=== PATIENT | female | born 1955 | race Caucasian/White ===

== ENCOUNTER 2025-01-02 10:37 | Inpatient (IN) | payer MEDICARE, SELFPAY ==
[2025-01-02] VITALS (43 sets, daily range): BP systolic 115–165; BP diastolic 66–95; PULSE 77–119; RESP 12–32; TEMP 36.7–37.4; O2SAT 90–98; BMI 31.2
--- NOTE | 2025-01-02 11:15 | CRLHL7_ITS ---
For Patients: As a result of the Century Cures Act, medical imaging exams and procedure reports are released immediately into your electronic medical record. You may view this report before your referring provider. If you have questions, please contact your health care provider. INDICATION: Leg pain and swelling. Low hemoglobin TECHNIQUE: Ultrasound venous duplex lower left extremity. Compression venous exam was performed using soriano-scale, color Doppler, and spectral Doppler analysis. COMPARISON: None. FINDINGS: Nonocclusive deep venous thrombosis is seen involving left common femoral vein as well as within the CFV/GSV junction. Great saphenous vein is entirely occluded with occlusive thrombus. Proximal and mid superficial femoral vein is compressible with no obvious intraluminal clot. Profunda femoral is compressible. Subocclusive thrombus is seen extending from distal superficial femoral vein into the calf veins. Contralateral right common femoral vein is patent and compressible. IMPRESSION: 1. Nonocclusive thrombus in the left common femoral, distal superficial femoral, popliteal and calf veins. 2. Occlusive superficial thrombosis involving great saphenous vein and GSV/common femoral vein junction. Findings were communicated to Dr. Wilfredo Liriano by Dr. Jv MD radiology at 12:42 p.m. on 01/02/2025. Dictated by Ana Maria Carias MD @ 01/02/2025 12:42:40 PM (Electronically Signed)
--- NOTE | 2025-01-02 11:18 | ED_ITS ---
HPI - General Adult General Chief complaint: Shortness of Breath/Dyspnea Stated complaint: Low Hgb Time Seen by Provider: 01/02/25 10:47 History of Present Illness HPI narrative: This 69-year-old female went to urgent care today because of left leg swelling and bruising and noticed on the way there that she became rather short of breath and had some lightheadedness. She states that she noticed these symptoms yesterday. She had labs checked there and was noted to have hemoglobin of 7.5. She was sent here for further evaluation and treatment. She arrives here with tachycardia at a heart rate around 120 beats per minute but other vital signs are reassuring. She denies having any awareness of loss of blood to explain this anemia. She states that she had a colonoscopy about a year ago with normal findings. She states that she takes a baby aspirin daily. She does not report any chest pain. She does have some occasions of pain shooting down her left leg but no constant pain. Her left leg does have some swelling and bruising. She denies any recent injury event. She states that she did have a bronchitis few weeks ago and was treated with an antibiotic. Those symptoms have resolved. Related Data Home Medications ?Medication ?Instructions ?Recorded ?Confirmed aspirin 81 mg tablet,delayed 81 mg PO DAILY 01/02/25 01/02/25 release atorvastatin 20 mg tablet 20 mg PO QPM 01/02/25 01/02/25 calcium 500 mg-vitamin D3 1,000 2 tab PO DAILY 01/02/25 01/02/25 unit-vitamin K 40 mcg chewable tablet (Citracal-D3 Soft Chew) lisinopril 20 mg tablet 10 mg PO DAILY 01/02/25 01/02/25 loratadine 10 mg tablet 10 mg PO DAILY PRN 01/02/25 01/02/25 Allergies Allergy/AdvReac Type Severity Reaction Status Date / Time Penicillins Allergy Verified 01/02/25 10:44 Review of Systems Status of ROS: Reports: 10 or more systems reviewed and unremarkable except as noted in History and below Narrative: Constitutional: No fevers, no weight gain or loss. Eyes: No discharge. No vision changes. HENT: No congestion, no sore throat, no ear pain. Cardiovascular: No chest pain, no palpitations. Respiratory: No wheezes, no cough. She reports some shortness of breath with exertion. Gastrointestinal: No abdominal pain, no vomiting, no diarrhea. Genitourinary: No dysuria, no hematuria. Musculoskeletal: Normal range of motion. Skin: No rashes, no pruritis. Neurological: No dizziness, weakness, sensory change, speech change. Endo/Heme/Allergies: No bleeding. No polydipsia. She reports some bruising and swelling in her left lower extremity. Pysch: no suicidality, no anxiety, no insomnia. All other systems reviewed and are negative. [facility] Medical History (Updated 01/02/25 @ 17:52 by Ngozi Mata MD) CKD stage 3b, GFR 30-44 ml/min ?N18.32 - Chronic kidney disease, stage 3b (ICD-10) Ulcerative proctitis ?K51.20 - Ulcerative (chronic) proctitis without complications (ICD-10) Colon polyp ?K63.5 - Polyp of colon (ICD-10) Osteopenia ?M85.80 - Other specified disorders of bone density and structure, unspecified site (ICD-10) Hyperlipidemia ?E78.5 - Hyperlipidemia, unspecified (ICD-10) Essential hypertension ?I10 - Essential (primary) hypertension (ICD-10) Surgical History (Updated 01/02/25 @ 17:44 by Ngozi Mata MD) Hx of colonoscopy ?Z98.890 - Other specified postprocedural states (ICD-10) Social History (Updated 01/02/25 @ 17:45 by Ngozi Mata MD) Narrative: Lives with her 98yo mother in [place]. Brother Ramiro/STARR Bolanos would be MDM if needed. Nonsmoker, rare social ETOH. Full Code. What is your current living situation?: I presently have a place to live Problems where you live: no known problems Problems where you live details: N/A In the past 12 months, utilities in danger of being shut off: no In past 12 months, lack of transportation kept you from medical appts, meetings, work, or getting things needed for daily living: no In the past 12 mos, have been you worried that your food would run out before you had money to buy more?: never true In the past 12 mos, the food you bought just didn't last and you didn't have money to buy more?: never true Highest level of school completed/degree received: high school graduate Smoking Status: Never smoker Do you use any of these nicotine containing products: None Second hand tobacco smoke exposure: No How often do you have a drink containing alcohol: never How often do you have six or more drinks on one occasion: Never AUDIT-C Alcohol total score: 0 Non-prescribed substance use: denies use Caffeine: Yes How often does anyone, including family, friends and others, physically hurt you : never How often does anyone, including family, friends and others, insult or talk down to you: never How often does anyone, including family, friends and others, threaten you with harm: never How often does anyone, including family, friends and others, scream or curse at you: never service: No Exam Narrative: Exam Narrative: Constitutional: Well-developed, well-nourished, no acute distress. HEENT: Normocephalic, atraumatic. Neck: Normal range of motion. Nontender. Supple. Heart: Regular. No murmurs. Tachycardia. Intact distal pulses. Lungs: Clear to auscultation. No chest discomfort. No wheezes, rhonchi, or rales. Abdomen: Normal bowel sounds. Nontender. No rebound tenderness. Genitalia: Deferred. Back: No midline tenderness. Normal range of motion. Extremities: Normal range of motion. No injury. Left leg does have some swelling and signs of diffuse bruising. Skin: Intact. No rash. Warm. No erythema or pallor. Neurologic: No altered sensation. No weakness. Alert and oriented. Psychiatric: No suicidality. No anxiety or depression. No insomnia. Nursing notes and vitals signs are reviewed. Const: Vital Signs, click to edit/add: Vital Signs - 24 hr 01/02/25 10:45 01/02/25 11:00 01/02/25 11:45 Temperature 98.1 F Pulse Rate 103 H 110 H Pulse Rate [Pulse Oximeter] 119 H Respiratory Rate 24 19 Blood Pressure Blood Pressure [Le ft Upper Arm] 144/77 H Pulse Oximetry 98 96 97 Oxygen Delivery Me thod Room Air 01/02/25 12:11 01/02/25 12:12 01/02/25 12:15 Temperature Pulse Rate 107 H 105 H 109 H Pulse Rate [Pulse Oximeter] Respiratory Rate 13 18 17 Blood Pressure 134/68 Blood Pressure [Le ft Upper Arm] Pulse Oximetry 94 94 93 Oxygen Delivery Me thod 01/02/25 12:30 01/02/25 12:32 01/02/25 12:32 Temperature Pulse Rate 97 104 H 104 H Pulse Rate [Pulse Oximeter] Respiratory Rate 16 Blood Pressure 134/69 134/69 Blood Pressure [Le ft Upper Arm] Pulse Oximetry 95 94 94 Oxygen Delivery Me thod 01/02/25 12:45 01/02/25 13:00 01/02/25 13:02 Temperature Pulse Rate 100 99 105 H Pulse Rate [Pulse Oximeter] Respiratory Rate 12 17 18 Blood Pressure 126/66 Blood Pressure [Le ft Upper Arm] Pulse Oximetry 93 92 92 Oxygen Delivery Me thod 01/02/25 13:15 01/02/25 13:41 01/02/25 13:45 Temperature Pulse Rate 97 114 H 101 H Pulse Rate [Pulse Oximeter] Respiratory Rate 13 13 22 Blood Pressure Blood Pressure [Le ft Upper Arm] Pulse Oximetry 90 90 96 Oxygen Delivery Me thod 01/02/25 14:00 01/02/25 14:05 01/02/25 14:06 Temperature Pulse Rate 92 94 97 Pulse Rate [Pulse Oximeter] Respiratory Rate 14 18 15 Blood Pressure Blood Pressure [Le ft Upper Arm] Pulse Oximetry 96 96 95 Oxygen Delivery Me thod 01/02/25 14:15 01/02/25 14:30 01/02/25 14:34 Temperature Pulse Rate 96 90 91 Pulse Rate [Pulse Oximeter] Respiratory Rate 26 H 18 32 H Blood Pressure Blood Pressure [Le ft Upper Arm] Pulse Oximetry 96 95 Oxygen Delivery Me thod 01/02/25 14:45 01/02/25 15:00 01/02/25 15:05 Temperature Pulse Rate 92 90 88 Pulse Rate [Pulse Oximeter] Respiratory Rate 20 29 H 29 H Blood Pressure Blood Pressure [Le ft Upper Arm] Pulse Oximetry 96 96 91 Oxygen Delivery Me thod 01/02/25 15:15 01/02/25 15:30 01/02/25 16:10 Temperature 99.2 F Pulse Rate 87 90 90 Pulse Rate [Pulse Oximeter] Respiratory Rate 23 18 18 Blood Pressure 137/78 Blood Pressure [Le ft Upper Arm] Pulse Oximetry 96 96 96 Oxygen Delivery Me thod Room Air 01/02/25 16:29 Temperature 98.2 F Pulse Rate 90 Pulse Rate [Pulse Oximeter] Respiratory Rate 18 Blood Pressure 141/80 H Blood Pressure [Le ft Upper Arm] Pulse Oximetry 94 Oxygen Delivery Me thod Room Air Course Vital Signs Vital signs: Initial Vital Signs Temperature 98.1 F 01/02/25 10:45 Temperature Source Temporal Artery Scan 01/02/25 10:45 Pulse Rate 119 H 01/02/25 10:45 Pulse Rhythm Irregular 01/02/25 10:45 Respiratory Rate 24 01/02/25 10:45 Blood Pressure 144/77 H 01/02/25 10:45 Blood Pressure Mean 99 01/02/25 10:45 Blood Pressure Position Semi-Fowlers 01/02/25 10:45 Pulse Oximetry 98 01/02/25 10:45 Oxygen Delivery Method Room Air 01/02/25 10:45 Vital Signs Temperature 98.1 F 01/02/25 10:45 Pulse Rate 119 H 01/02/25 10:45 Respiratory Rate 24 01/02/25 10:45 Blood Pressure 144/77 H 01/02/25 10:45 Pulse Oximetry 98 01/02/25 10:45 Oxygen Delivery Method Room Air 01/02/25 10:45 Temperature 98.7 F 01/02/25 21:00 Pulse Rate 83 01/02/25 21:00 Respiratory Rate 16 01/02/25 21:00 Blood Pressure 133/76 01/02/25 21:00 Pulse Oximetry 95 01/02/25 21:00 Oxygen Delivery Method Room Air 01/02/25 21:00 Medications Administered Medications: Generic Name Dose Route Start Last Admin Trade Name Freq PRN Reason Stop Dose Admin Atorvastatin Calcium 20 mg 01/02/25 18:00 01/02/25 18:54 Atorvastatin Calcium 10 Mg Tablet PO 20 mg QPM AISLINN Administration Heparin Sodium/Dextrose 25,000 unit in 500 mls @ 0 mls/hr 01/02/25 21:00 01/02/25 21:00 Heparin IV 1,300 unit/hr .Q0M AISLINN 26 mls/hr Administration Protocol Per Protocol Discontinued Medications Generic Name Dose Route Start Last Admin Trade Name Freq PRN Reason Stop Dose Admin Acetaminophen 1,000 mg 01/02/25 14:24 01/02/25 14:38 Acetaminophen 500 Mg Tablet PO 01/02/25 14:25 Not Given ONCE ONE Apixaban 10 mg 01/02/25 12:24 01/02/25 13:42 Apixaban 5 Mg Tablet PO 01/02/25 12:25 10 mg ONCE ONE Administration Furosemide 20 mg 01/02/25 18:38 01/02/25 18:55 Furosemide 10 Mg/Ml Inj IVP 01/02/25 18:39 20 mg ONCE ONE Administration Pantoprazole Sodium 80 mg 01/02/25 16:28 01/02/25 17:46 Pantoprazole Sodium 40 Mg Inj IVP 01/02/25 16:29 80 mg ONCE ONE Administration Perflutren Lipid Microsphere 2 ml 01/02/25 15:44 01/02/25 15:45 Perflutren Lipid Microspheres 2 Ml Vial IVP 01/02/25 15:45 2 ml ONCE ONE Administration Medical Decision Making Lab Data Labs: Lab Results 01/02/25 01/02/25 Range/Units 12:10 16:37 WBC 11.90 H (4.50-11.00) K/uL RBC 4.04 (4.00-5.20) m/uL Hgb 7.6 L* (12.0-16.0) gm/dL Hct 26.7 L (33.0-51.0) % MCV 66 L (80-100) fL MCH 19 L (26-34) pg MCHC 29 L (32-36) gm/dL RDW Coeff of Marc 16.9 H (11.5-15.5) % Plt Count 376 (140-440) K/uL Neut % (Auto) 88.2 H (42.0-72.0) % Lymph % (Auto) 5.0 L (20-44) % [place] % (Auto) 6.1 (0.0-11.0) % Eos % (Auto) 0.1 (0.0-7.0) % Baso % (Auto) 0.3 (0.0-3.0) % Neut # (Auto) 10.50 H (1.7-7.0) K/uL Lymph # (Auto) 0.60 L (0.90-2.90) K/uL [place] # (Auto) 0.70 (0.00-0.90) K/UL Eos # (Auto) 0.00 (0.00-0.50) K/uL Baso # (Auto) 0.00 (0.00-0.30) K/uL Abs Immat Gran (auto) 0.00 (0.00-0.30) K/uL Imm/Tot Granulo (auto) 0.3 % ESR 18 (2-20) mm/hr INR 1.07 1.77 H (0.91-1.10) APTT 32 (23-33) Seconds Sodium 139 (135-149) mmol/L Potassium 3.9 (3.6-5.1) mmol/L Chloride 105 (96-114) mmol/L Carbon Dioxide 24 (20-32) mmol/L Anion Gap 10 (7-15) mEq/L BUN 20 (7-30) mg/dL Creatinine 1.3 (0.5-1.5) mg/dL Estimated Creat Clear 28.51 Estimated GFR 44 ml/min Glucose 147 H (60-115) mg/dL Lactate 2.3 H (0.5-1.9) mmol/L Calcium 8.8 (8.4-10.6) mg/dL Total Bilirubin 0.6 (0.1-1.5) mg/dL Direct Bilirubin 0.4 (0.0-0.5) mg/dL AST 30 (12-35) U/L ALT 23 (4-35) U/L Alkaline Phosphatase 141 (40-150) U/L C-Reactive Protein 4.9 H (0.5-1.0) mg/dL Total Protein 6.1 (6.0-8.3) g/dL Albumin 3.6 (3.3-5.0) g/dL Blood Type AB Positive Antibody Screen NEGATIVE Crossmatch (AHG) See Detail Imaging Data Venous US: Radiologist's impression: 1. Nonocclusive thrombus in the left common femoral, distal superficial femoral, popliteal and calf veins. 2. Occlusive superficial thrombosis involving great saphenous vein and GSV/common femoral vein junction. CT scan - chest: Radiologist's impression: 1. Bilateral lower lobe pulmonary emboli beginning at the segmental level. Overall, the embolus burden is fairly mild. 2. The main pulmonary artery is not dilated, but the right heart chambers are dilated and there is mild reflux of contrast into the upper abdominal IVC. Can not exclude acute right heart strain. Consider echocardiogram if not already performed. 3. Small left pleural effusion without loculation. ECG Data Attestation: I personally reviewed and interpreted this ECG as follows: Interpretation: Sinus tachycardia with occasional PACs. Rate is 109 beats per minute. There are no ST or T-wave abnormalities.
--- NOTE | 2025-01-02 12:13 | CRLHL7_ITS ---
For Patients: As a result of the Century Cures Act, medical imaging exams and procedure reports are released immediately into your electronic medical record. You may view this report before your referring provider. If you have questions, please contact your health care provider. INDICATION: DVT, anemia. COMPARISON: Ultrasound 01/02/2025 for DVT TECHNIQUE: CT angiogram chest with contrast, pulmonary embolism protocol. Multiplanar axial, coronal, and sagittal reformats are included. Intravenous contrast: 95 mL Isovue 370. FINDINGS: PE: Well-timed contrast bolus. There are bilateral pulmonary emboli. The most proximal emboli or at the segmental level in both lower lobes. None of the more proximal emboli are completely occlusive but some of the distal emboli are normal caliber main pulmonary artery. Mildly dilated right heart chambers. Small volume reflux of contrast below the diaphragm. Airway: Expiratory appearance of the trachea. Lungs: Expiratory appearance of the lungs. Within the aerated portion, no worrisome nodules or mass. There is some atelectasis in the left lower lobe that appears compressive. No consolidations. No definitive infarcts. No pulmonary edema. Pleura: There is a small left pleural effusion that is layering posteriorly and inferiorly without any loculation. No pneumothorax. Lymph nodes: No thoracic adenopathy. Mediastinum: No pneumomediastinum. Moderate sliding-type hiatal hernia without any inflammation. Heart and great vessels: No pericardial effusion. Normal cardiac chamber size. Scattered atherosclerotic plaques. No aortic aneurysm. Chest wall: Normal. No masses. Upper abdomen: Normal. Bones: No fractures. No focal bone lesions. IMPRESSION: 1. Bilateral lower lobe pulmonary emboli beginning at the segmental level. Overall, the embolus burden is fairly mild. 2. The main pulmonary artery is not dilated, but the right heart chambers are dilated and there is mild reflux of contrast into the upper abdominal IVC. Can not exclude acute right heart strain. Consider echocardiogram if not already performed. 3. Small left pleural effusion without loculation. Discussed with Dr. Villalobos at 2:02 p.m. on 01/02/2025. Please note that all CT scans at this facility use dose modulation, iterative reconstruction, and/or weight-based dosing when appropriate to reduce radiation dose to as low as reasonably achievable. Dictated by Angi Maynard MD @ 01/02/2025 2:03:48 PM (Electronically Signed)
[2025-01-02 12:15] LABS: Lactate* 2.3 mmol/L (0.5-1.9)
[2025-01-02 12:18] LABS: Basophils Percent Auto 0.3 % (0.0-3.0); Eosinophils Percent Auto 0.1 % (0.0-7.0); Hematocrit 26.7 % (33.0-51.0); Immature Granulocytes Pct Auto 0.3 %; Mean Corpuscular HGB Conc 29 gm/dL (32-36); Mean Corpuscular Hemoglobin 19 pg (26-34); Mean Corpuscular Volume 66 fL (80-100); Monocytes Percent Auto 6.1 % (0.0-11.0); Neutrophils Percent Auto 88.2 % (42.0-72.0); Platelet Count* 376 K/uL (140-440); RDW Coefficient of Variation % 16.9 % (11.5-15.5); Red Blood Count 4.04 m/uL (4.00-5.20)
[2025-01-02 12:24] LABS: Hemoglobin* 7.6 gm/dL (12.0-16.0); Slide Review Reflex No
[2025-01-02 12:30] LABS: Chloride* 105 mmol/L (96-114)
[2025-01-02 12:31] LABS: Albumin* 3.6 g/dL (3.3-5.0); Potassium* 3.9 mmol/L (3.6-5.1); Sodium* 139 mmol/L (135-149)
[2025-01-02 12:32] LABS: INR 1.07 (0.91-1.10); Prothrombin Time 14.7 Seconds
[2025-01-02 12:33] LABS: Blood Urea Nitrogen* 20 mg/dL (7-30); Creatinine* 1.3 mg/dL (0.5-1.5); Est. Creatinine Clearance* 28.51; Estimated Glomerular Filt Rate 44 ml/min
[2025-01-02 12:34] LABS: Alanine Aminotransferase* 23 U/L (4-35); Alkaline Phosphatase* 141 U/L (40-150); Anion Gap 10 mEq/L (7-15); Aspartate Amino Transferase* 30 U/L (12-35); Bilirubin Direct* 0.4 mg/dL (0.0-0.5); Bilirubin Total* 0.6 mg/dL (0.1-1.5); Calcium* 8.8 mg/dL (8.4-10.6); Carbon Dioxide* 24 mmol/L (20-32); Glucose* 147 mg/dL (60-115); Total Protein* 6.1 g/dL (6.0-8.3)
[2025-01-02 12:37] LABS: C Reactive Protein* 4.9 mg/dL (0.5-1.0)
--- OUTSIDE RECORDS SUMMARY | 2025-01-02 12:52 | XMS_ITS | Clinical Summary ---
Author Organization [facility] Address [address] [place] [id number] Care Team Providers Care Calibration Laboratory Technician Name Role Phone Emily Mccullough Primary Care Provider [phone] Allergies Active Allergy Reactions Criticality Noted Date Comments Penicillins 12/08/2010 Medications aspirin (ECOTRIN) 81 mg enteric coated tablet Take 1 tablet by mouth once daily with a meal. 0 5 Active loratadine (CLARITIN) 10 mg tabletIndications :Seasonal allergic rhinitis due to pollen TAKE ONE TABLET BY MOUTH ONE TIME DAILY 30 tablet 8 Active atorvastatin (LIPITOR) 20 mg tabletIndications :Dyslipidemia Take 1 Tablet (20 mg) by mouth at bedtime. 100 Tablet 3 4 Active lisinopriL (PRINIVIL; ZESTRIL) 10 mg tabletIndications :Essential hypertension Take 1 Tablet (10 mg) by mouth once daily. 100 Tablet 3 4 Active medication order composer Calcium and Vit D once daily Active benzonatate (TESSALON) 200 mg capsuleIndication s:Acute cough Take 1 Capsule (200 mg) by mouth 3 times daily if needed for Cough. 30 Capsule 5 Active albuterol HFA (PRO-AIR; VENTOLIN; PROVENTIL) 90 mcg/actuation inhalerIndication s:Acute cough Inhale 1-2 Puffs by mouth every 4 hours while awake. Use as directed for 5 days, then as needed for cough and wheezing. 1 Each 5 Active azithromycin (ZITHROMAX) 250 mg tabletIndications :Acute cough Take 500 mg (2 tabs) by mouth on day 1, then 250 mg (1 tab) daily for days 2-5. 6 Tablet 5 Active predniSONE (DELTASONE) 20 mg tabletIndications :Acute cough Take 2 Tablets (40 mg) by mouth once daily with a meal for 5 days. 10 Tablet 5 12/08/19 25 Active Problems Problem Noted Date Diagnosed Date Fatty liver disease, nonalcoholic 02/07/2024 Overview (02/07/2024): Mildly elevated liver chemistry tests. Prediabetes 01/15/2024 Severe obesity (BMI 35.0-39.9) with comorbidity 01/15/2024 Stage 3b chronic kidney disease (CKD) 12/12/2021 Adenomatous colon polyp 07/15/2021 Overview (07/15/2021): Colonoscopy 06/2021 TA, repeat in 7 years Osteopenia of multiple sites 07/01/2020 Overview (02/01/2024): DEXA 06/23/20: T-scores AP: -1.8, LFN -1.8, RFN -1.6. FRAX 16.3. Recommend basic bone health and repeat in 3-5 years. DEXA 01/24/24: T-scores AP: -1.9, LFN -2.4, RFN -2.1. FRAX 20%, 4.9%. Recommend advanced therapy and repeat in 2 years. Skin cancer 12/29/2017 Overview (05/25/2023): 03/24/2023 - Left lateral shoulder, basal cell carcinoma, nodular and infiltrative: excised 05/05/2023 by Juan Simon MD 03/24/2023 - Right superior shoulder, BCC: ED&C 04/14/2023 by MICKEY Nava. 05/2020 - LEFT LUTHERAN, Basal cell carcinoma, nodular type: MOHS 07/21/2020 Imtiaz 05/2020 - LEFT FOREARM, Basal cell carcinoma, superficial and nodular types: ED&C 07/14/20 Alfred 05/2020 - LEFT BACK, Basal cell carcinoma, nodular and infiltrative types: excision 07/14/20 Alfred 05/2020 - LEFT UPPER ARM, Basal cell carcinoma, nodular type: ED&C 06/24/20 Alfred 12/28/17 Left Upper Arm, n&I BCC, excised 02/01/18 Alfred 12/28/17 Left Lower Arm n&I BCC, excised 02/01/18 Alfred Non morbid obesity 12/05/2016 Ulcerative (chronic) proctitis 07/10/2014 Overview (07/24/2014): Colonoscopy 06/2014 proctitis repeat in 7 years Dyslipidemia 05/30/2014 Essential hypertension 05/08/2013 Resolved Problems Problem Noted Date Diagnosed Date Resolved Date Positive fecal occult blood test 06/02/2014 12/05/2016 Overview (06/02/2014): Screening ifobt 05/2014 positive. Recommend colonoscopy. Overweight 06/01/2014 12/05/2016 Prediabetes 05/09/2013 12/07/2017 Overview (05/09/2013): 04/2013 A1C 5.7 Dyslipidemia, goal LDL below 130 05/09/2013 05/30/2014 Overview (05/09/2013): Lifestyle modifications Encounters Date Type Department Care Team Description 01/02/2025 8:25 AM CDT [facility] [address] [place] [address] Shelia Titus NP Leg Pain/problem 01/02/2025 Travel 12/03/2024 8:50 AM COAL WASHER TENDER Office Visit [facility] [address] [place] [address] Tara Altamirano NP Cough; Sinus Problem (x 3-4 weeks) 12/03/2024 Travel 10/04/2024 11:46 AM COAL WASHER TENDER - 10/04/2024 11:59 PM COAL WASHER TENDER Hospital Encounter [facility] [address] [place] [address] Osteopenia of multiple sites (Primary Dx) 10/04/2024 Travel from Last 3 Months Immunizations Immunization Administration Dates Next Due COVID-19 vaccine (MyWants NTech 30mcg/0.3mL) PF, MDV 09/15/2021,01/28/2021,01/07/2021 Influenza RIV4 (Age 18+ Year s) PRESERV FREE 07/25/2019 Influenza Virus, Unspecified 06/16/2018,07/15/20 17 Influenza, High-dose Quadriv alent Inactivated 07/22/2023,08/08/2022,06/30/2021,2019 Influenza, IIV4 07/30/2016 Pneumococcal Poly,23-Valent (Pneumovax) 12/06/2019 Pneumococcal conj 13-Valent (Prevnar 13) 12/03/2018 Td (Age >=7 Years) 04/22/2005,04/04/2005 Tdap 01/29/2024,05/08/2013 Zoster (Zostavax-ZVL, live) 12/05/2015 Family History Medical History Relation Name Comments Heart Disease Father [place] Cancer-breast Mother Hyperlipidemia Mother Postmenopausal breast cancer Mother Genetic Other Family history of:~~Breast Cancer: No~~Ovarian Cancer: No~~Colon CA: No~~Prostate/Testicular CA: No~~Osteoporosis: No~~Early CAD: Father [place] at 59. ~~DM: Aunt ~~Thyroid Dz: No Cancer-ovarian No Family History Relation Name Status Comments Father Mother Alive Other Social History Tobacco Use Types Packs/Day Years Used Date Smoking Tobacco: Never Smokeless Tobacco: Never Tobacco Cessation:Counseling Given: No Alcohol Use Standard Drinks/Week Comments No 0 (1 standard drink = 0.6 oz pure alcohol) Alcoholic Drinks/day: infrequent <2 per month PHQ-2 Answer Date Recorded PHQ-2 TOTAL SCORE 0 01/15/2024 Social Connections Answer Date Recorded Do you often feel lonely or isolated from those around you? 0 04/04/2024 Financial Resource Strain Answer Date R ecorded Difficulty of Paying Living Expenses 3 04/04/2024 Difficulty of Paying Living Expenses Not on file 04/04/2024 Food Insecurity Answer Date Recorded Do you worry your food will run out before you are able to buy more? 1 04/04/2024 Transportation Needs Answer Date Record ed Does lack of transportation keep you from medica l appointments? 1 04/04/2024 Does lack of transportation keep you from work, meetings or getting things that you need? 1 04/04/2024 Housing Stability Answer Date Recorded What is your housing situation today? 1 04/04/2024 Utilities Answer Date Recorded Do you have trouble paying f or utilities (for example, heat, electricity, water, phone)? 1 04/04/2024 Comments No Sex and Gender Information Value Date Recorded Sex Assigned at Not on file Legal Sex Female 5:26 AM COAL WASHER TENDER Gender Identity Not on file Sexual Orientation Not on file Obstetrics History Last Filed Vital Signs Vital Sign Reading Time Taken Comments Blood Pressure 145/84 01/02/2025 8:25 AM CDT Pulse 107 01/02/2025 8:25 AM CDT Temperature 36.8 C (98.3 F) 01/02/2025 8:25 AM CDT Respiratory Rate 18 01/02/2025 8:25 AM CDT Oxygen Saturation 96% 01/02/2025 8:25 AM CDT Inhaled Oxygen Concentration - - Weight 74.8 kg (165 lb) 08/09/2024 1:15 PM CDT Height 152.4 cm (5') 08/09/2024 1:15 PM CDT Body Mass Index 32.22 08/09/2024 1:15 PM CDT Plan of Treatment Upcoming Encounters Date Type Department Care Team (Late st Contact Info) Description 01/17/2025 10:20 AM CDT Office Visit [facility] [address] [place] [address] [place] [address] [place] [address] Health Maintenance Due Date Last Done Comments RSV vaccine for adults or (1 - Risk 60-74 years 1-dose series) 2013 Zoster (shingles) series for age 50+ (2 of 3) 01/30/2016 12/05/2015 Influenza Vaccine (#1) 2024 9, 06/16/2018, 07/15/2017, Additional history exists Mammogram for age 45-75 07/07/2024 07/07/20 23, 12/14/2021, 07/02/2020, Additional history exists Depression screening for age 12+ 01/14/2025 01/15/2024, 01/30/2023, 01/27/2023, Additional history exists Medicare Wellness for age 65+ 01/15/2025, 01/27/2023, 12/10/2021, Additional history exists COVID-19 vaccine series ( season) 2025 07/25/2024, 08/13/2023, 08/20/2022, Additional history exists BMI (ht and wt on same day) for age 18+ 08/09/2025 08/09/2024, 04/04/2024, 01/15/2024, Additional history exists Colonoscopy through age 75 07/13/202807/13, 07/13/2021, 07/13/2021, Additional history exists Lipids for age 45-75 01/14/2029 01/15/2024, 01/27/2023, 12/10/2021, Additional history exists Tetanus booster 01/28/2034 01/29/2024, 04/16, 04/22/2005, Additional history exists Hepatitis C screening for ag e 18-79 Completed 12/03/2018 Pneumococcal series for age 50+ Completed , 12/03/2018 DEXA/DXA scan for age 65+ Completed 01/24/2024, 05/2020 Tdap Completed 01/29/2024, 05/08/2013 Procedures Procedure Name Priority Date/Time Associated Diagnosis Comments CBC WITH AUTO DIFFERENTIAL STAT 01/02/2025 9:01 AM CDT Leg hematoma, left, initial encounter CREATININE Today 10/04/2024 12:04 PM COAL WASHER TENDER Osteopenia of multiple sites CALCIUM Today 10/04/2024 12:04 PM COAL WASHER TENDER Osteopenia of multiple sites VITAMIN D 25 (DEFICIENCY) Today 10/04/2024 12:04 PM COAL WASHER TENDER Osteopenia of multiple sites XR DXA BONE DENSITY 2 SITES AXIAL AND 1 SITE PERIPHERAL Routine 01/24/2024 10:40 AM CDT Osteopenia of multiple sites LIPID PANEL W REFLEX MEASURED LDL Routine 01/15/2024 11:30 AM CDT Dyslipidemia XR MAMMO LEE BILAT SCREEN Routine 07/07/2023 1:17 PM CDT Visit for screening mammogram COLONOSCOPY SCREENING Routine 07/13/2021 8:59 AM CDT Polyp of colon, unspecified part of colon, unspecified type Screening for colon cancer ANTI HCV Routine 12/03/2018 11:37 AM COAL WASHER TENDER Need for hepatitis C screening test from Last 3 Months or Most Recently Relevant to Health Maintenance Results * VITAMIN D 25 (DEFICIENCY) (10/04/2024 12:04 PM COAL WASHER TENDER) VITAMIN D TOTAL 30.9 20.0 - 80.0 ng/mL 10/04/2024 2:39 PM COAL WASHER TENDER [facility] Blood BLOOD SPECIMEN / Unknown Venipuncture / Unknown 10/04/2024 12:04 PM COAL WASHER TENDER 10/04/2024 12:07 PM COAL WASHER TENDER Narrative [facility] - 10/04/2024 2:39 PM COAL WASHER TENDER Vitamin D Status Deficiency: <20 ng/mL Insufficiency: 20-29 ng/mL Sufficiency: 30-80 ng/mL Possible Toxicity: >80 ng/mL Based on [place] [employer] recommendations Biotin supplements may cause clinically significant interference for this test assay. If interference is suspected, it is strongly recommended that biotin is discontinued for at least one week prior to retesting. us Nilay Brantley MD SEND OUTS Final Resu lt [facility] [address] [place] [address], [place] * (ABNORMAL) CREATININE (10/04/2024 12:04 PM COAL WASHER TENDER) eGFR 32(L) >90 mL/min/1.7 3m2 10/04/2024 12:29 PM COAL WASHER TENDER [facility] Comment:As of 2021, eG FR is calculated by the CKD-EPI creatinine equation without race adjustment. eGFR can be influenced by muscle mass, exercise, and diet. The reported eGFR is an estimation only and is only applicable if the renal function is stable. CREATININE 1.69(H) 0.50 - 0.90 mg/dL 10/04/2024 12:29 PM COAL WASHER TENDER [facility] Blood BLOOD SPECIMEN / Unknown Venipuncture / Unknown 10/04/2024 12:04 PM COAL WASHER TENDER 10/04/2024 12:07 PM COAL WASHER TENDER us Nilay Brantley MD CHEMISTRY Final Resu lt Performing Organization Address [facility]/ZIP Co de Phone Number [facility] SENDOUT INTERNAL [facility] [id number] [place] [phone] * CALCIUM (10/04/2024 12:04 PM COAL WASHER TENDER) [facility] CALCIUM 9.3 8.8 - 10.4 mg/dL 10/04/2024 12:29 PM COAL WASHER TENDER [facility] Comment: Reference ranges for this test were updated on 08/20/2024 to reflect our healthy population more accurately. Reference range changes are not retroactively applied to results, but previous results using the same methodology can be interpreted in the context of the new reference range. Blood BLOOD SPECIMEN / Unknown Venipuncture / Unknown 10/04/2024 12:04 PM COAL WASHER TENDER 10/04/2024 12:07 PM COAL WASHER TENDER us Nilay Brantley MD CHEMISTRY Final Resu lt Performing Organization Address City/[facility]/ZIP Co de Phone Number [facility] SENDOUT INTERNAL ZIP [phone] [place] [address] * (ABNORMAL) XR DXA BONE DENSITY 2 SITES AXIAL AND 1 SITE PERIPHERAL (01/24/2024 10:40 AM CDT) Anatomical Region Laterality Modality LUMBAR SPINE Other Impressions 01/30/2024 1:37 PM CDT Osteopenia. RECOMMENDATIONS: The National Osteoporosis Foundation recommends pharmacologic treatment for patients with T-scores of -2.5 or less, patients with prior history of fragility fractures, or patients with 10-year probability of greater than 3% at hips or greater than 20% of suffering major osteoporotic fractures. Recommend continued optimization of calcium and vitamin D intake through dietary means and/or supplementation and regular exercise. Consider pharmacologic therapy for osteopenia with increased fracture risk. Follow-up bone density reading in 2 years if therapy initiated to assess therapeutic efficacy. Sara Fenton PA-C [facility] 01/30/2024 Narrative 01/30/2024 1:37 PM CDT For Patients: Results are automatically released to your [facility] account once available, in compliance with federal regulations. This means that you may see your results before your provider has had a chance to review them. Please allow 2-3 business days for your provider to comment on the results. XR DXA Bone Mineral Density (BMD) EXAM LOCATION: [address] [address] PATIENT NAME: Jermain Jones DATE OF : 1955 EXAM DATE: 01/24/2024 REQUESTING PROVIDER: Emily Mccullough DO GENDER AT : female HEIGHT: 4' 9 (01/15/2024) WEIGHT: 165 lb 11.2 oz (01/15/2024) MENOPAUSAL STATUS: Postmenopausal RACE/ETHNICITY: White RISK FACTORS: Height Loss (2 inches or more), History of Fragility Fracture (at a major site), Renal Failure, and White Race CURRENT MEDICATION FOR BONE LOSS: NONE INDICATION: Follow-up of existing osteopenia COMPARISON DATE(S): 2019 DXA scans are compared to prior studies for a patient only when the two (or more) studies were performed on the same scanner. It is not possible to compare data generated on one scanner to data from another because there are not standards in DXA equipment. This applies even if the two scanners are made by the same product technology scientist. PROCEDURE: Dual-energy x-ray absorptiometry performed with routine technique. Reporting is completed in the form of a T-score. The T-score represents the standard deviation from peak bone mass based on young healthy adult. A Z-score is used for diagnosis in premenopausal women, and for men under the age of 50. FINDINGS: RESULT LUMBAR SPINE L1 - L3 BMD: 0.946 g/cm2 T-Score: - 1.9 Z-Score: - 0.6 Change from prior in 2020: Decrease 2.7%. RESULTS FEMUR Left femoral neck BMD: 0.702 g/cm2 T-Score: - 2.4 Z-Score: - 0.9 Change from prior in 2020: Decrease 10.6%. Right femoral neck BMD: 0.752 g/cm2 T-Score: - 2.1 Z-Score: - 0.6 Change from prior in 2020: Decrease 7.4%. Left hip BMD: 0.739 g/cm2 T-Score: - 2.1 Z-Score: - 0.9 Change from prior in 2020: Decrease 3.1%. Right hip BMD: 0.827 g/cm2 T-Score: - 1.4 Z-Score: - 0.2 Change from prior in 2020: Decrease 4.9%. RESULT FOREARM Left Forearm distal radius BMD: 0.571 g/cm2 T-Score: - 1.7 Z-Score: + 0.2 Change from prior: None(NO COMPARISON) WHO criteria: Normal: T-score at or above -1 SD Osteopenia: T-score between -1.1 and -2.4 SD Osteoporosis: T-score at or below -2.5 SD FRAX RISK CALCULATION (USED FOR OSTEOPENIA ONLY): 10-year probability of major osteoporotic fracture: 20.7%. 10-year probability of hip fracture: 4.9%. Emily Armijoe Sadia DO DEXA Final Resul t * LIPID PANEL W REFLEX MEASURED LDL (01/15/2024 11:30 AM CDT) [facility] CHOLESTEROL,TOTAL 160 100 - 199 mg/dL 01/15/2024 5:01 PM [facility] Comment: Cholesterol, Total Reference Ranges Desirable <200 mg/dL Borderline 200-239 mg/dL High >=240 mg/dL TRIGLYCERIDES 73 <150 mg/dL 01/15/2024 5:01 PM T [facility] HDL CHOLESTEROL 81 >40 mg/dL 5:01 PM [facility] NON-HDL CHOLESTEROL 79 <145 mg/dl 01/15/2024 5:01 PM [facility] CHOL/HDL RATIO 1.98 <4.50 01/15/2024 5:01 PM CDT [facility] LDL CHOLESTEROL 64 <=130 mg/dL 01/15/2024 5:01 PM CDT [facility] VLDL CHOLESTEROL 15 <=30 mg/dL 01/15/2024 5:01 PM CDT [facility] PROVIDER ORDERED STATUS FASTING 01/15/2024 5:01 PM CDT [facility] Blood BLOOD SPECIMEN / Unknown Venipuncture / Unknown 01/15/2024 11:30 AM CDT 01/15/2024 11:30 AM CDT us Emily Mccullough DO CHEMISTRY Final Resul t [facility] [address] [place] [address], [place] * XR MAMMO LEE BILAT SCREEN (07/07/2023 1:17 PM CDT) Anatomical Region Laterality Modality BREASTS, Breast Left, Breast Right Bilateral Mammography Impressions 07/07/2023 3:50 PM CDT There is no radiographic evidence for malignancy. Recommend annual mammograms. MAMMOGRAM ASSESSMENT: ACR 1 Negative PATIENTS: You will also receive a letter with your examination results in an easy to read format. If you have questions about your results, please contact your referring provider. Narrative 07/07/2023 3:50 PM CDT For Patients: As a result of the Century Cures Act, medical imaging exams and procedure reports are released immediately into your electronic medical record. You may view this report before your referring provider. If you have questions, please contact your health care provider. XR MAMMO LEE BILAT SCREEN [[id number]] CLINICAL HISTORY: This is an asymptomatic 68 y.o. patient. INDICATION FOR EXAM: Mammogram Screening. TECHNIQUE: CC & MLO views were obtained. This study was evaluated with the assistance of Computer-Aided Detection. Breast Tomosynthesis was used in interpretation. COMPARISON FILM: Yes 12/14/21 [employer] 9/17/20 [facility] FINDINGS: The breasts are heterogeneously dense, which may obscure small masses. There are no dominant masses, suspicious micro calcifications or areas of architectural distortion. us Emily Mccullough DO MAMMO Final Resul t * COLONOSCOPY (07/13/2021 9:19 AM CDT) 07/13/2021 9:19 AM CDT Narrative Transcriptions Vamshi Quesada MD - 07/13/2021 10:14 AM CDT Patient Name: Jermain Jones Procedure Date: 07/13/2021 Gender: Female Date of : 1955 Admit Type: Outpatient Procedure: Colonoscopy Proceduralist: Vmashi Quesada MD , Jasmin Ku (Nurse) Referring MD: Emily Mccullough Indications/Pre-Op Diagnosis: Screening for colorectal malignant neoplasm, Last colonoscopy: June 2014 Medications: Fentanyl 100 micrograms IV, Midazolam 2 mgIV, The level of sedation administered wasmoderate Procedure Description: The patient had risks, benefits and alternatives explained to andgave informed consent. The patient had a stable cardiopulmonary status and judged an adequate candidate for conscious sedation. The [id number] was passed through the anus and advanced tothe terminal ileum. The colonoscopy was performed without difficulty. The patient tolerated the procedure well. The quality of the bowel preparation was good. The ileocecal valve, appendiceal orifice, and rectum were photographed. Complications: No immediate complications. Estimated Blood Loss & Specimen: Estimated blood loss: none. Specimen collected - Yes and sent to Laboratory Findings: The perianal and digital rectal examinations were normal. The terminal ileum appeared normal. A 3 mm polyp was found in the sigmoid colon. The polyp was sessile.The polyp was removed with a cold biopsy forceps. Resection and retrieval were complete. A few small-mouthed diverticula were found in the sigmoid colon and descending colon. Impressions/Post-Op Diagnosis: - The examined portion of the ileum was normal. - One 3 mm polyp in the sigmoid colon, removed with a cold biopsy forceps. Resected and retrieved. - Diverticulosis in the sigmoid colon and in the descending colon. Recommendation: - Patient has a contact number available for emergencies. The signsand symptoms of potential delayed complications were discussed with the patient. Return to normal activities tomorrow. Written discharge instructions were provided to the patient. - Resume previous diet. - Continue present medications. - Await pathology results. - Repeat colonoscopy is recommended. The colonoscopy date will be determined after pathology results from today's exam become available for review. Moderate Sedation: Moderate (conscious) sedation was administered by the endoscopy nurse and supervised by the endoscopist. The following parameters were monitored: oxygen saturation, heart rate, respiratory rate, blood pressure, adequacy of pulmonary ventilation and reponse to care. Please refer to the patient's medical record flowsheets and nursing notes for moderate sedation details. Total physician intraservice time was 16 minutes. Vamshi Quesada MD 07/13/2021 10:14:04 AM This report has been signed electronically. Note Initiated On: 07/13/2021 9:19 AM Procedure Code(s): --- Professional --- 20112, Colonoscopy, flexible; with biopsy, single or multiple Diagnosis Code(s): --- Professional --- Z12.11, Encounter for screening formalignant neoplasm of colon K63.5, Polyp of colon K57.30, Diverticulosis of large intestine without perforation or abscess withoutbleeding CPT copyright 2020 [employer]. All rights reserved. The codes documented in this report are preliminary and upon insurance coder reviewmay be revised to meet current compliance requirements. Scope In: 9:57:15 AM Scope Withdrawal Time 0 hours 8 minutes 18 seconds Scope Out: 10:10:12 AM us Vamshi Quesada MD PROCEDURE ORD Final Res ult * ANTI HCV (12/03/2018 11:37 AM COAL WASHER TENDER) HEPATITIS C ANTIBODY Non-React dede Non-React dede 12/03/2018 7:19 PM COAL WASHER TENDER [facility] Comment:Antibodies to HCV no t detected; does not exclude the possibility of exposure to HCV. Blood BLOOD SPECIMEN / Unknown Venipuncture / Unknown 12/03/2018 11:37 AM COAL WASHER TENDER 12/03/2018 11:37 AM COAL WASHER TENDER us Emily Mccullough DO SEND OUTS Final Resul t [facility] [address] [place] [address], [place] from Last 3 Months or Most Recently Relevant to Health Maintenance Insurance [facility] [employer] MEDICARE PART A HB ONLY * Guarantor: JERMAIN JONES Account Type Relation to Patient Date of Phone Billing Address [employer] [address] [place] [address] [facility] Care Teams Calibration Laboratory Technician Relationship Specialty [place] [address] [place] [address] PCP - General Family Practice 12/03/18
[2025-01-02 13:17] LABS: Erythrocyte SedimentationRate* 18 mm/hr (2-20)
[2025-01-02] MEDS: APIXABAN 5 MG TABLET 10 MG PO (13:42)
[2025-01-02] MEDS: PERFLUTREN LIPID MICROSPHERES 2 ML VIAL IVP (15:45)
[2025-01-02 16:56] LABS: INR 1.77 (0.91-1.10); Prothrombin Time 21.7 Seconds
[2025-01-02 16:57] LABS: Partial Thromboplastin Time* 32 Seconds (23-33)
--- NOTE | 2025-01-02 17:29 | PM.IMHP1 ---
Assessment and Plan Assessment and plan (1) Microcytic anemia: Problem comment: - new diagnosis 01/02/2025, unclear chronicity - concerning for acute blood loss anemia; + gastritis symptoms - EGD ordered, IV PPI, 2U PRBCs, follow Hgb, iron studies - reassuring colonoscopy in 2020 Status: Acute (2) Pulmonary emboli: Problem comment: - new diagnosis 01/02/25 - received Eliquis in the emergency room, will transition to heparin drip on the floor - TTE to evaluate for right heart strain - plan for anticoagulation pending EGD results and clinical course Status: Acute (3) DVT of lower limb, acute: Status: Acute (4) CKD stage 3b, GFR 30-44 ml/min: Problem comment: - baseline outpatient creatinine 1.3-1.4 Status: Acute (5) Essential hypertension: Problem comment: - HOLDING home Lisinopril in the setting of possible acute bleed + recent outpatient hypotension Status: Acute Plan - per above (heparin GTT, EGD) - understands need for possible transfer to tertiary care center if she exhibits any instability or acute bleeding that requires specialty care - requires inpatient level of care given heparin drip, serial hemoglobins, EGD, cardiac monitoring - brother Ramiro updated bedside, questions answered Hospitalist- H&P: HPI History of Present Illness Date Seen: 01/02/25 Chief complaint: Low Hgb Narrative: Heike Jones is a 69 year old female who presented to the emergency room at the behest of an urgent care provider for a hemoglobin of 7.5 and tachycardia. She had presented to the urgent care for left calf bruising and edema (noted for a few days without any recent trauma or injury); during visit noted to be tachycardic and dyspneic. Labs revealed a hemoglobin of 7.5 (no recent baseline; hemoglobin was 13 in 2012) and creatinine of 1.7 outpatient baseline 1.3); she was instructed to come to the emergency room. Has been sick with bronchitis for the past 3 or 4 weeks; did not do any COVID testing during that time. Was treated with Prednisone, Azithromycin, and Tessalon Perles. No recent travel. No history of malignancy. No self or family history of blood clots Last colonoscopy was in 2020; noted to have a 3 mm sigmoid polyp and diverticulosis at that time. ER: - nonocclusive thrombus in left common femoral, distal superficial femoral, popliteal veins. + occlusive thrombus in the great saphenous vein and GSV/common femoral vein junction - bilateral lower lobe PEs beginning at the segmental level with mild burden, possible right heart strain - given Eliquis, 10 mg - hemoglobin 7.6 with MCV of 66 - creatinine 1.3, normal electrolytes and LFTs - tachycardic on presentation with pulse 110, no hypoxia Patient was admitted to the hospital for new anemia, possible acute blood loss, anticoagulation management for new PEs/DVTs. Histories updated, PCP is Dr. Mccullough. Review of Systems Narrative: - no melanotic stools - no nausea/vomiting - POSITIVE acid reflux symptoms, has been holding daily ASA over the past 1-2 weeks - Has noted lower BPs over the past 1-2 weeks and has been holding her home dose of Lisinopril PFSH [facility] Medical History (Updated 01/02/25 @ 17:52 by Ngozi Mata MD) CKD stage 3b, GFR 30-44 ml/min ?N18.32 - Chronic kidney disease, stage 3b (ICD-10) Ulcerative proctitis ?K51.20 - Ulcerative (chronic) proctitis without complications (ICD-10) Colon polyp ?K63.5 - Polyp of colon (ICD-10) Osteopenia ?M85.80 - Other specified disorders of bone density and structure, unspecified site (ICD-10) Hyperlipidemia ?E78.5 - Hyperlipidemia, unspecified (ICD-10) Essential hypertension ?I10 - Essential (primary) hypertension (ICD-10) Surgical History (Updated 01/02/25 @ 17:44 by Ngozi Mata MD) Hx of colonoscopy ?Z98.890 - Other specified postprocedural states (ICD-10) Social History (Updated 01/02/25 @ 17:45 by Ngozi Mata MD) Narrative: Lives with her 98yo mother in [place]. Brother Ramiro/STARR Bolanos would be MDM if needed. Nonsmoker, rare social ETOH. Full Code. Smoking Status: Never smoker Do you use any of these nicotine containing products: None Second hand tobacco smoke exposure: No How often do you have a drink containing alcohol: never How often do you have six or more drinks on one occasion: Never AUDIT-C Alcohol total score: 0 Non-prescribed substance use: denies use service: No Meds Home Medications and Allergies Home Medications ?Medication ?Instructions ?Recorded ?Confirmed ?Type aspirin 81 mg tablet,delayed 81 mg PO DAILY 01/02/25 01/02/25 History release atorvastatin 20 mg tablet 20 mg PO QPM 01/02/25 01/02/25 History calcium 500 mg-vitamin D3 1,000 2 tab PO DAILY 01/02/25 01/02/25 History unit-vitamin K 40 mcg chewable tablet (Citracal-D3 Soft Chew) lisinopril 20 mg tablet 10 mg PO DAILY 01/02/25 01/02/25 History loratadine 10 mg tablet 10 mg PO DAILY PRN 01/02/25 01/02/25 History Allergies Allergy/AdvReac Type Severity Reaction Status Date / Time Penicillins Allergy Verified 01/02/25 10:44 Exam Narrative: Exam Narrative: GEN: Alert and oriented, answering questions appropriately HEENT: + pallor, EOMIs bilaterally, no scleral icterus CV: RRR (rate in the 90s during my exam), no concerning murmurs R: LCTA bilaterally without concerning wheezing Ext: Left lower extremity edema with linear bruising anteriorly that is tender to palpation Skin: No other concerning skin lesions or rashes on exposed skin Neuro: Nonfocal Psych: Appropriate Const: Vital Signs, click to edit/add: Vital Signs - 24 hr 01/02/25 10:45 01/02/25 11:00 01/02/25 11:45 Temperature 98.1 F Pulse Rate 103 H 110 H Pulse Rate [Left A pical] Pulse Rate [Pulse Oximeter] 119 H Respiratory Rate 24 19 Blood Pressure Blood Pressure [Le ft Upper Arm] 144/77 H Blood Pressure [Ri ght Arm] Pulse Oximetry 98 96 97 Oxygen Delivery Me thod Room Air 01/02/25 12:11 01/02/25 12:12 01/02/25 12:15 Temperature Pulse Rate 107 H 105 H 109 H Pulse Rate [Left A pical] Pulse Rate [Pulse Oximeter] Respiratory Rate 13 18 17 Blood Pressure 134/68 Blood Pressure [Le ft Upper Arm] Blood Pressure [Ri ght Arm] Pulse Oximetry 94 94 93 Oxygen Delivery Me thod 01/02/25 12:30 01/02/25 12:32 01/02/25 12:32 Temperature Pulse Rate 97 104 H 104 H Pulse Rate [Left A pical] Pulse Rate [Pulse Oximeter] Respiratory Rate 16 Blood Pressure 134/69 134/69 Blood Pressure [Le ft Upper Arm] Blood Pressure [Ri ght Arm] Pulse Oximetry 95 94 94 Oxygen Delivery Me thod 01/02/25 12:45 01/02/25 13:00 01/02/25 13:02 Temperature Pulse Rate 100 99 105 H Pulse Rate [Left A pical] Pulse Rate [Pulse Oximeter] Respiratory Rate 12 17 18 Blood Pressure 126/66 Blood Pressure [Le ft Upper Arm] Blood Pressure [Ri ght Arm] Pulse Oximetry 93 92 92 Oxygen Delivery Me thod 01/02/25 13:15 01/02/25 13:41 01/02/25 13:45 Temperature Pulse Rate 97 114 H 101 H Pulse Rate [Left A pical] Pulse Rate [Pulse Oximeter] Respiratory Rate 13 13 22 Blood Pressure Blood Pressure [Le ft Upper Arm] Blood Pressure [Ri ght Arm] Pulse Oximetry 90 90 96 Oxygen Delivery Ri thod 01/02/25 14:00 01/02/25 14:05 01/02/25 14:06 Temperature Pulse Rate 92 94 97 Pulse Rate [Left A pical] Pulse Rate [Pulse Oximeter] Respiratory Rate 14 18 15 Blood Pressure Blood Pressure [Le ft Upper Arm] Blood Pressure [Ri ght Arm] Pulse Oximetry 96 96 95 Oxygen Delivery Me thod 01/02/25 14:15 01/02/25 14:30 01/02/25 14:34 Temperature Pulse Rate 96 90 91 Pulse Rate [Left A pical] Pulse Rate [Pulse Oximeter] Respiratory Rate 26 H 18 32 H Blood Pressure Blood Pressure [Le ft Upper Arm] Blood Pressure [Ri ght Arm] Pulse Oximetry 96 95 Oxygen Delivery Me thod 01/02/25 14:45 01/02/25 15:00 01/02/25 15:05 Temperature Pulse Rate 92 90 88 Pulse Rate [Left A pical] Pulse Rate [Pulse Oximeter] Respiratory Rate 20 29 H 29 H Blood Pressure Blood Pressure [Le ft Upper Arm] Blood Pressure [Ri ght Arm] Pulse Oximetry 96 96 91 Oxygen Delivery Me thod 01/02/25 15:15 01/02/25 15:30 01/02/25 16:10 Temperature 99.2 F Pulse Rate 87 90 90 Pulse Rate [Left A pical] Pulse Rate [Pulse Oximeter] Respiratory Rate 23 18 18 Blood Pressure 137/78 Blood Pressure [Le ft Upper Arm] Blood Pressure [Ri ght Arm] Pulse Oximetry 96 96 96 Oxygen Delivery Me thod Room Air 01/02/25 16:29 01/02/25 16:59 01/02/25 17:06 Temperature 98.2 F 99.3 F Pulse Rate 90 94 89 Pulse Rate [Left A pical] Pulse Rate [Pulse Oximeter] Respiratory Rate 18 18 Blood Pressure 141/80 H 145/88 H Blood Pressure [Le ft Upper Arm] Blood Pressure [Ri ght Arm] Pulse Oximetry 94 94 Oxygen Delivery Me thod Room Air Room Air 01/02/25 17:17 Temperature 99.2 F Pulse Rate Pulse Rate [Left A pical] 90 Pulse Rate [Pulse Oximeter] Respiratory Rate 18 Blood Pressure Blood Pressure [Le ft Upper Arm] Blood Pressure [Ri ght Arm] 137/78 Pulse Oximetry 96 Oxygen Delivery Me thod Room Air Hospitalist - H&P: Result Labs Labs: Short CBC 01/02/25 Range/Units 12:10 WBC 11.90 H (4.50-11.00) K/uL Hgb 7.6 L* (12.0-16.0) gm/dL Hct 26.7 L (33.0-51.0) % Plt Count 376 (140-440) K/uL BMP 01/02/25 12:10 Sodium 139 Potassium 3.9 Chloride 105 Carbon Dioxide 24 BUN 20 Creatinine 1.3 Glucose 147 H Calcium 8.8 Liver Function 01/02/25 Range/Units 12:10 Total Bilirubin 0.6 (0.1-1.5) mg/dL Direct Bilirubin 0.4 (0.0-0.5) mg/dL AST 30 (12-35) U/L ALT 23 (4-35) U/L Alkaline Phosphatase 141 (40-150) U/L Albumin 3.6 (3.3-5.0) g/dL
[2025-01-02 17:41] LABS: Appearance Urine Clear (Clear); Bilirubin Urine Negative (Negative); Blood Urine Trace-lysed (Negative); Color Urine Yellow (Yellow); Glucose Urine Negative (Negative); Ketones Urine Negative (Negative); Leukocyte Esterase Urine Negative (Negative); Nitrite Urine Negative (Negative); Protein Urine Negative (Negative); Specific Gravity Urine <= 1.005 (1.000-1.030); Urobilinogen Urine 0.2 (0.2-1.0)
[2025-01-02] MEDS: PANTOPRAZOLE SODIUM 40 MG INJ 80 MG IVP (17:46)
[2025-01-02 18:17] LABS: RBC Urine 0-2 (0-2); WBC Urine 0-2 (0-5)
[2025-01-02] MEDS: ATORVASTATIN CALCIUM 10 MG TABLET 20 MG PO (18:54)
[2025-01-02] MEDS: FUROSEMIDE 10 MG/ML inj 20 MG IVP (18:55)
[2025-01-02] MEDS: HEPARIN 25,000 UNIT/500 ML BAG 26 UNIT IV (21:00)
[2025-01-02] MEDS: SODIUM CHLORIDE 0.9 % (FLUSH) 10 ML SYRINGE 5 ML IVF (22:49)
--- NOTE | 2025-01-02 22:50 | PC.NURSE ---
End of Shift: Patient admitted to 251. Pleasant and cooperative. Afebrile. Denies pain. Up to bathroom with SBA. Tolerating clear liquids with no nausea. O2 sats greater than 90% on room air. 2 units of PRBC infused without difficultly and no s/s of reaction. Heparin drip started at 2100 with no bolus given per MD.
[2025-01-02 22:55] LABS: Hemoglobin* 10.4 gm/dL (12.0-16.0)
[2025-01-03] VITALS (9 sets, daily range): BP systolic 104–142; BP diastolic 74–86; PULSE 77–96; RESP 16–20; TEMP 36.8–37.2; O2SAT 93–95
[2025-01-03 03:12] LABS: Basophils Percent Auto 0.5 % (0.0-3.0); Hematocrit 33.2 % (33.0-51.0); Hemoglobin* 10.2 gm/dL (12.0-16.0); Immature Granulocytes Pct Auto 0.4 %; Lymphocytes Percent Auto 8.8 % (20-44); Mean Corpuscular HGB Conc 31 gm/dL (32-36); Mean Corpuscular Hemoglobin 21 pg (26-34); Mean Corpuscular Volume 70 fL (80-100); Monocytes Percent Auto 7.9 % (0.0-11.0); Neutrophils Percent Auto 81.4 % (42.0-72.0); Platelet Count* 352 K/uL (140-440); RDW Coefficient of Variation % 21.5 % (11.5-15.5); Red Blood Count 4.77 m/uL (4.00-5.20); White Blood Count* 11.21 K/uL (4.50-11.00)
[2025-01-03 03:14] LABS: Slide Review Reflex No
[2025-01-03 03:25] LABS: Chloride* 102 mmol/L (96-114)
[2025-01-03 03:26] LABS: Albumin* 3.3 g/dL (3.3-5.0); Potassium* 3.8 mmol/L (3.6-5.1); Sodium* 135 mmol/L (135-149)
[2025-01-03 03:28] LABS: Blood Urea Nitrogen* 17 mg/dL (7-30); Creatinine* 1.3 mg/dL (0.5-1.5); Est. Creatinine Clearance* 28.51; Estimated Glomerular Filt Rate 44 ml/min
[2025-01-03 03:29] LABS: Alanine Aminotransferase* 17 U/L (4-35); Alkaline Phosphatase* 146 U/L (40-150); Anion Gap 5 mEq/L (7-15); Aspartate Amino Transferase* 28 U/L (12-35); Calcium* 8.2 mg/dL (8.4-10.6); Carbon Dioxide* 28 mmol/L (20-32); Glucose* 108 mg/dL (60-115); Total Protein* 5.9 g/dL (6.0-8.3)
[2025-01-03 03:42] LABS: Partial Thromboplastin Time* 139 Seconds (23-33)
[2025-01-03 03:45] LABS: Iron* 320 ug/dL (37-170)
[2025-01-03 03:47] LABS: INR 1.46 (0.91-1.10); Prothrombin Time 18.7 Seconds
[2025-01-03 03:54] LABS: Percent Iron Saturation 87 % (20-50); Total Iron Binding Capacity 368 ug/dL (265-497)
[2025-01-03 04:05] LABS: Ferritin* 22.7 ng/mL (11.1-264.0)
--- NOTE | 2025-01-03 07:03 | PC.NURSE ---
23-07: pleasant and cooperative. Indep in room. Heparin given per protocol, next PTT to be drawn at 0945, drip currently running at 1100 units/hr. LLE swollen, tender to touch otherwise no c/o pain.?Tele - NSR.
--- NOTE | 2025-01-03 07:54 | CRLHL7_ITS ---
For Patients: As a result of the Century Cures Act, medical imaging exams and procedure reports are released immediately into your electronic medical record. You may view this report before your referring provider. If you have questions, please contact your health care provider. INDICATION: NEW ANEMIA, ELEVATED BILIRUBIN, NORMAL IRON COUNTS. SUSPECT MALIGNANCY TECHNIQUE: CT abdomen and pelvis acquired with 78 cc Isovue 370 IV contrast. COMPARISON: Chest CT previous day. FINDINGS: Lower chest: Stable small left effusion and associated passive atelectasis. ABDOMEN: Liver: Normal enhancement. No focal suspicious hepatic lesions. Gallbladder and biliary: Vicarious excretion of contrast gallbladder. Normal caliber bile ducts. Spleen: Multiple subcentimeter hypoattenuating foci throughout the spleen. Pancreas: Normal enhancement without peripancreatic inflammatory changes or ductal dilatation. Adrenal glands: Normal adrenal glands. Kidneys and ureters: Normal enhancement. No radio-opaque calculi. No hydroureteronephrosis. GI tract: Large hiatal hernia. Normal caliber small and large bowel loops. Normal appendix. Vascular structures: Normal caliber abdominal aorta. Lymph nodes: No lymphadenopathy in the abdomen or pelvis by size criteria. Peritoneum: No free air, free fluid, or focal drainable fluid collection. PELVIS: Genitourinary system: Retained contrast in the urinary bladder. Urinary bladder is relatively decompressed. Atrophic uterus. SKELETAL STRUCTURES AND SOFT TISSUES: Pubic symphysis arthrosis. Lumbar spondylosis. IMPRESSION: 1. No discrete acute abdominal or pelvic process. No obstruction. No definite imaging findings to explain the reported clinical symptoms. 2. Multiple subcentimeter hypoattenuating foci throughout the spleen. Of indeterminate etiology. Recommend further evaluation with a dedicated splenic protocol MRI. Underlying differential considerations include splenic infectious process, or lymphoproliferative origin. Please note that all CT scans at this facility use dose modulation, iterative reconstruction, and/or weight-based dosing when appropriate to reduce radiation dose to as low as reasonably achievable. Dictated by Wyatt Nichols MD @ 01/03/2025 9:21:25 AM (Electronically Signed)
[2025-01-03] MEDS: SODIUM CHLORIDE 0.9 % (FLUSH) 10 ML SYRINGE 5 ML IVF ×2 (08:30→20:41)
[2025-01-03 08:39] LABS: HCO3 VBG 29 mmol/L (21-28); Lactate* 1.1 mmol/L (0.5-1.9); PCO2 VBG 39 mmHG (40-50); PO2 VBG < 30.1 mmHG (25-47); pH VBG 7.484 (7.32-7.43)
[2025-01-03 08:45] LABS: Immature Reticulocyte Fraction 44.5 % (3.0-15.9); Reticulocyte Percent 1.5 % (0.5-2.0); Reticulocytes Absolute 0.07 # (0.03-0.08)
[2025-01-03 08:46] LABS: Gamma Glutamyl Transpeptidase* 21 U/L (8-55); Lipase* 110 U/L (23-300)
[2025-01-03 08:47] LABS: Magnesium* 1.9 mg/dL (1.5-2.6)
[2025-01-03 08:57] LABS: Troponin I* 0.02 ng/mL (0.01-0.04)
[2025-01-03 09:47] LABS: Partial Thromboplastin Time* 99 Seconds (23-33)
--- NOTE | 2025-01-03 10:42 | PC.NURSE ---
Heparin saline locked to go to ENDO, and will not restart when patient returns from Endo per MD.
--- NOTE | 2025-01-03 11:04 | P.ANES_ITS ---
Anesthesia Charges Start Date/Time Anesthesia Start Date: 01/03/25 Anesthesia Start Time: 10:55 Stop Date/Time Anesthesia Stop Date: 01/03/25 Anesthesia Stop Time: 11:10 Summary Emergency: MDA Extremes of Age - Over 70 or under 1: MDA Coding CPT Codes CPT Codes: ANES UPR GI NDSC PX NOS - 74182 ([id number]) P3 - PATIENT W/SEVERE SYS DISEASE, QK - GREASE PRESS HELPER 2-4 CNCRNT ANES PROC, QX - PRINTED CIRCUIT BOARDS CONTACT PRINTER SVC W/ MD MED DIRECTION Additional Codes: Summary - Emergency: MDA ([id number]) Summary - Extremes of Age - Over 70 or under 1: MDA ([id number])
--- NOTE | 2025-01-03 11:04 | W.ANESCHARGE ---
Anesthesia Charges Start Date/Time Anesthesia Start Date: 01/03/25 Anesthesia Start Time: 10:55 Stop Date/Time Anesthesia Stop Date: 01/03/25 Anesthesia Stop Time: 11:10 Summary Emergency: MDA Extremes of Age - Over 70 or under 1: MDA Coding CPT Codes CPT Codes: ANES UPR GI NDSC PX NOS - 74219 ([id number]) P3 - PATIENT W/SEVERE SYS DISEASE, QK - FILE DRAWER FINISHER 2-4 CNCRNT ANES PROC, QX - CONTACT REPRESENTATIVE SVC W/ MD MED DIRECTION Additional Codes: Summary - Emergency: MDA ([id number]) Summary - Extremes of Age - Over 70 or under 1: MDA ([id number])
--- NOTE | 2025-01-03 11:15 | P.ANES_ITS ---
Anesthesia Charges Start Date/Time Anesthesia Start Date: 01/03/25 Anesthesia Start Time: 10:55 Stop Date/Time Anesthesia Stop Date: 01/03/25 Anesthesia Stop Time: 11:10 Summary Emergency: PHONE CIRCUIT OPERATOR Extremes of Age - Over 70 or under 1: PHONE CIRCUIT OPERATOR Coding CPT Codes CPT Codes: ANES UPR GI NDSC PX NOS - 76409 ([id number]) P3 - PATIENT W/SEVERE SYS DISEASE, QX - PHONE CIRCUIT OPERATOR SVC W/ MD MED DIRECTION, QK - SUPERVISOR MOTORCYCLE REPAIR SHOP 2-4 CNCRNT ANES PROC Additional Codes: Summary - Emergency: PHONE CIRCUIT OPERATOR ([id number]) Summary - Extremes of Age - Over 70 or under 1: PHONE CIRCUIT OPERATOR ([id number])
--- NOTE | 2025-01-03 11:15 | W.ANESCHARGE ---
Anesthesia Charges Start Date/Time Anesthesia Start Date: 01/03/25 Anesthesia Start Time: 10:55 Stop Date/Time Anesthesia Stop Date: 01/03/25 Anesthesia Stop Time: 11:10 Summary Emergency: CRAB BACKER Extremes of Age - Over 70 or under 1: CRAB BACKER Coding CPT Codes CPT Codes: ANES UPR GI NDSC PX NOS - 58790 ([id number]) P3 - PATIENT W/SEVERE SYS DISEASE, QX - CRAB BACKER SVC W/ MD MED DIRECTION, QK - CELL FEED DEPARTMENT SUPERVISOR 2-4 CNCRNT ANES PROC Additional Codes: Summary - Emergency: CRAB BACKER ([id number]) Summary - Extremes of Age - Over 70 or under 1: CRAB BACKER ([id number])
--- NOTE | 2025-01-03 11:46 | PM.IMPN1 ---
Exam Const: Vital Signs, click to edit/add: Vital Signs - 24 hr 01/02/25 12:11 01/02/25 12:12 01/02/25 12:15 Temperature Pulse Rate 107 H 105 H 109 H Pulse Rate [Left A pical] Respiratory Rate 13 18 17 Blood Pressure 134/68 Blood Pressure [Ri ght Arm] Pulse Oximetry 94 94 93 Oxygen Delivery Me thod 01/02/25 12:30 01/02/25 12:32 01/02/25 12:32 Temperature Pulse Rate 97 104 H 104 H Pulse Rate [Left A pical] Respiratory Rate 16 Blood Pressure 134/69 134/69 Blood Pressure [Ri ght Arm] Pulse Oximetry 95 94 94 Oxygen Delivery Me thod 01/02/25 12:45 01/02/25 13:00 01/02/25 13:02 Temperature Pulse Rate 100 99 105 H Pulse Rate [Left A pical] Respiratory Rate 12 17 18 Blood Pressure 126/66 Blood Pressure [Ri ght Arm] Pulse Oximetry 93 92 92 Oxygen Delivery Me thod 01/02/25 13:15 01/02/25 13:41 01/02/25 13:45 Temperature Pulse Rate 97 114 H 101 H Pulse Rate [Left A pical] Respiratory Rate 13 13 22 Blood Pressure Blood Pressure [Ri ght Arm] Pulse Oximetry 90 90 96 Oxygen Delivery Me thod 01/02/25 14:00 01/02/25 14:05 01/02/25 14:06 Temperature Pulse Rate 92 94 97 Pulse Rate [Left A pical] Respiratory Rate 14 18 15 Blood Pressure Blood Pressure [Ri ght Arm] Pulse Oximetry 96 96 95 Oxygen Delivery Me thod 01/02/25 14:15 01/02/25 14:30 01/02/25 14:34 Temperature Pulse Rate 96 90 91 Pulse Rate [Left A pical] Respiratory Rate 26 H 18 32 H Blood Pressure Blood Pressure [Ri ght Arm] Pulse Oximetry 96 95 Oxygen Delivery Me thod 01/02/25 14:45 01/02/25 15:00 01/02/25 15:05 Temperature Pulse Rate 92 90 88 Pulse Rate [Left A pical] Respiratory Rate 20 29 H 29 H Blood Pressure Blood Pressure [Ri ght Arm] Pulse Oximetry 96 96 91 Oxygen Delivery Me thod 01/02/25 15:15 01/02/25 15:30 01/02/25 16:10 Temperature 99.2 F Pulse Rate 87 90 90 Pulse Rate [Left A pical] Respiratory Rate 23 18 18 Blood Pressure 137/78 Blood Pressure [Ri ght Arm] Pulse Oximetry 96 96 96 Oxygen Delivery Me thod Room Air 01/02/25 16:29 01/02/25 16:59 01/02/25 17:06 Temperature 98.2 F 99.3 F Pulse Rate 90 94 89 Pulse Rate [Left A pical] Respiratory Rate 18 18 Blood Pressure 141/80 H 145/88 H Blood Pressure [Ri ght Arm] Pulse Oximetry 94 94 Oxygen Delivery Me thod Room Air Room Air 01/02/25 17:17 01/02/25 17:29 01/02/25 17:59 Temperature 99.2 F 98.3 F 98.2 F Pulse Rate 83 84 Pulse Rate [Left A pical] 90 Respiratory Rate 18 18 18 Blood Pressure 144/88 H 143/81 H Blood Pressure [Ri ght Arm] 137/78 Pulse Oximetry 96 96 94 Oxygen Delivery Me thod Room Air Room Air Room Air 01/02/25 18:29 01/02/25 19:00 01/02/25 19:12 Temperature 98.6 F 98.9 F 98.9 F Pulse Rate 83 84 Pulse Rate [Left A pical] 84 Respiratory Rate 18 18 18 Blood Pressure 160/89 H 156/91 H Blood Pressure [Ri ght Arm] 149/80 H Pulse Oximetry 95 95 95 Oxygen Delivery Me thod Room Air Room Air Room Air 01/02/25 19:29 01/02/25 20:00 01/02/25 20:30 Temperature 98.9 F 98.7 F 98.8 F Pulse Rate 84 80 84 Pulse Rate [Left A pical] Respiratory Rate 18 18 18 Blood Pressure 165/84 H 136/83 137/78 Blood Pressure [Ri ght Arm] Pulse Oximetry 95 95 96 Oxygen Delivery Me thod Room Air Room Air Room Air 01/02/25 21:00 01/02/25 21:30 01/02/25 22:30 Temperature 98.7 F 98.7 F 98.9 F Pulse Rate 83 87 88 Pulse Rate [Left A pical] Respiratory Rate 16 16 16 Blood Pressure 133/76 140/80 H 141/76 H Blood Pressure [Ri ght Arm] Pulse Oximetry 95 97 96 Oxygen Delivery Me thod Room Air Room Air Room Air 01/02/25 23:00 01/02/25 23:00 01/02/25 23:00 Temperature 98.9 F Pulse Rate Pulse Rate [Left A pical] 83 Respiratory Rate 18 18 18 Blood Pressure Blood Pressure [Ri ght Arm] 115/95 H Pulse Oximetry 94 94 Oxygen Delivery Me thod Room Air Room Air 01/02/25 23:37 01/03/25 02:02 01/03/25 07:33 Temperature 98.4 F Pulse Rate 77 77 Pulse Rate [Left A pical] 95 Respiratory Rate 18 Blood Pressure Blood Pressure [Ri t Arm] 127/86 Pulse Oximetry 94 Oxygen Delivery Me thod Room Air 01/03/25 08:23 01/03/25 08:23 01/03/25 08:23 Temperature 98.8 F Pulse Rate Pulse Rate [Left A pical] 84 84 Respiratory Rate 20 20 20 Blood Pressure Blood Pressure [Ri t Arm] 139/86 Pulse Oximetry 93 93 Oxygen Delivery Md thod Room Air Room Air Labs Labs: Laboratory Results - last 24 hr 01/02/25 01/02/25 01/02/25 12:10 16:37 17:25 WBC 11.90 H RBC 4.04 Hgb 7.6 L* Hct 26.7 L MCV 66 L MCH 19 L MCHC 29 L RDW Coeff of Marc 16.9 H Plt Count 376 Neut % (Auto) 88.2 H Lymph % (Auto) 5.0 L [place] % (Auto) 6.1 Eos % (Auto) 0.1 Baso % (Auto) 0.3 Neut # (Auto) 10.50 H Lymph # (Auto) 0.60 L [place] # (Auto) 0.70 Eos # (Auto) 0.00 Baso # (Auto) 0.00 Abs Immat Gran (auto) 0.00 Imm/Tot Granulo (auto) 0.3 ESR 18 Absolute Retic Percent Retic Immature Retic Fraction Retic Hgb Equivalent INR 1.07 1.77 H APTT 32 VBG pH VBG pCO2 VBG pO2 VBG HCO3 Sodium 139 Potassium 3.9 Chloride 105 Carbon Dioxide 24 Anion Gap 10 BUN 20 Creatinine 1.3 Estimated Creat Clear 28.51 Estimated GFR 44 Glucose 147 H Lactate 2.3 H Calcium 8.8 Magnesium Iron TIBC % Saturation Ferritin Total Bilirubin 0.6 Direct Bilirubin 0.4 GGT AST 30 ALT 23 Alkaline Phosphatase 141 Troponin I C-Reactive Protein 4.9 H Total Protein 6.1 Albumin 3.6 Lipase Urine Color Yellow Urine Appearance Clear Urine pH 5.0 Ur Specific [place] <= 1.005 Urine Protein Negative Urine Glucose (UA) Negative Urine Ketones Negative Urine Blood Trace-lysed A Urine Nitrite Negative Urine Bilirubin Negative Urine Urobilinogen 0.2 Ur Leukocyte Esterase Negative Urine RBC 0-2 Urine WBC 0-2 Ur Squamous Epith Cells None Urine Bacteria None Lab Acknowledgement Blood Type AB Positive Antibody Screen NEGATIVE Crossmatch (AHG) See Detail 01/02/25 01/03/25 01/03/25 22:45 03:04 08:30 WBC 11.21 H RBC 4.77 Hgb 10.4 L 10.2 L Hct 33.2 MCV 70 L MCH 21 L MCHC 31 L RDW Coeff of Marc 21.5 H Plt Count 352 Neut % (Auto) 81.4 H Lymph % (Auto) 8.8 L [place] % (Auto) 7.9 Eos % (Auto) 1.0 Baso % (Auto) 0.5 Neut # (Auto) 9.10 H Lymph # (Auto) 1.00 [place] # (Auto) 0.90 Eos # (Auto) 0.10 Baso # (Auto) 0.10 Abs Immat Gran (auto) 0.00 Imm/Tot Granulo (auto) 0.4 ESR Absolute Retic 0.07 Percent Retic 1.5 Immature Retic Fraction 44.5 H Retic Hgb Equivalent 16.0 L INR 1.46 H APTT 139 H* VBG pH VBG pCO2 VBG pO2 VBG HCO3 Sodium 135 Potassium 3.8 Chloride 102 Carbon Dioxide 28 Anion Gap 5 L BUN 17 Creatinine 1.3 Estimated Creat Clear 28.51 Estimated GFR 44 Glucose 108 Lactate Calcium 8.2 L Magnesium 1.9 Iron 320 H TIBC 368 % Saturation 87 H Ferritin 22.7 Total Bilirubin 4.0 H Direct Bilirubin GGT 21 AST 28 ALT 17 Alkaline Phosphatase 146 Troponin I 0.02 C-Reactive Protein 5.0 H Total Protein 5.9 L Albumin 3.3 Lipase 110 Urine Color Urine Appearance Urine pH Ur Specific [place] Urine Protein Urine Glucose (UA) Urine Ketones Urine Blood Urine Nitrite Urine Bilirubin Urine Urobilinogen Ur Leukocyte Esterase Urine RBC Urine WBC Ur Squamous Epith Cells Urine Bacteria Lab Acknowledgement Test Added Blood Type Antibody Screen Crossmatch (AHG) 01/03/25 01/03/25 08:34 09:25 WBC RBC Hgb Hct MCV MCH MCHC RDW Coeff of Marc Plt Count Neut % (Auto) Lymph % (Auto) [place] % (Auto) Eos % (Auto) Baso % (Auto) Neut # (Auto) Lymph # (Auto) [place] # (Auto) Eos # (Auto) Baso # (Auto) Abs Immat Gran (auto) Imm/Tot Granulo (auto) ESR Absolute Retic Percent Retic Immature Retic Fraction Retic Hgb Equivalent INR APTT 99 H VBG pH 7.484 H VBG pCO2 39 L VBG pO2 < 30.1 VBG HCO3 29 H Sodium Potassium Chloride Carbon Dioxide Anion Gap BUN Creatinine Estimated Creat Clear Estimated GFR Glucose Lactate 1.1 Calcium Magnesium Iron TIBC % Saturation Ferritin Total Bilirubin Direct Bilirubin GGT AST ALT Alkaline Phosphatase Troponin I C-Reactive Protein Total Protein Albumin Lipase Urine Color Urine Appearance Urine pH Ur Specific [place] Urine Protein Urine Glucose (UA) Urine Ketones Urine Blood Urine Nitrite Urine Bilirubin Urine Urobilinogen Ur Leukocyte Esterase Urine RBC Urine WBC Ur Squamous Epith Cells Urine Bacteria Lab Acknowledgement Blood Type Antibody Screen Crossmatch ([facility])
--- NOTE | 2025-01-03 12:01 | CRLHL7_ITS ---
For Patients: As a result of the Century Cures Act, medical imaging exams and procedure reports are released immediately into your electronic medical record. You may view this report before your referring provider. If you have questions, please contact your health care provider. INDICATION: Follow-up splenic lesion. COMPARISON: CT chest 01/02/2025, CT abdomen pelvis 01/03/2025 TECHNIQUE: Multiplanar, multisequence MR imaging of the abdomen, without and with IV contrast. The splenic lesion protocol was utilized. Contrast: 20 mL Dotarem FINDINGS: Normal spleen size and position. There are 2 small well-circumscribed T2 hyperintensities in the spleen. These measure 4 and 5 millimeters. See series 8, image 16. These are very slightly hypoenhancing compared to the adjacent spleen. See series 17, image 24. They do not restrict diffusion in the manner typical of the normal splenic parenchyma. Elsewhere within the spleen there are some T2 hypointensities that are equally small and demonstrate similar early hypoenhancement with eventual normalization to the background spleen. All of the discrete lesions are isointense on T1 weighted images. The splenic artery and vein are normal. Significant diffuse hepatic steatosis. No focal liver lesions. Normal gallbladder and bile ducts. Normal pancreas and pancreatic duct. Normal adrenal glands. Normal kidneys. No ascites. No adenopathy. Normal caliber of the abdominal aorta and its major branches. No IVC or renal vein thrombus. The mesenteric, portal, and hepatic veins are all patent. Small left pleural effusion is similar to prior. Small hiatal hernia, sliding type. No volvulus or inflammation. Inflamed no dilated or bowel [id number]. IMPRESSION: 1. Scattered subcentimeter splenic lesions without splenomegaly. Imaging appearance is not specific for a single etiology, and in the absence of symptoms, most splenic lesions are not of clinical significance. The most common significant etiology would be a granulomatous inflammation/infection or fungal infection. Isolated splenic metastasis are extremely rare. The most common cause of metastasis to the spleen is melanoma. 2. Diffuse hepatic steatosis. Dictated by Angi Maynard MD @ 01/03/2025 1:26:56 PM (Electronically Signed)
[2025-01-03 13:19] LABS: Lab Add On Test New Spec Needed
--- NOTE | 2025-01-03 13:23 | PM.IMPN1 ---
Assessment and Plan Assessment and plan (1) Pulmonary emboli: Problem comment: - new diagnosis 01/02/25 - one dose eliquis in ED; heparin overnight 01/02, lovenox 1mg/kg started 01/03 - TTE to evaluate for right heart strain - No strain but likely underlying tricuspid reg with increased right atrial pressures. -Bilateral lower lobe pulmonary emboli beginning at the segmental level. Overall, the embolus burden is fairly mild. -The main pulmonary artery is not dilated, but the right heart chambers are dilated and there is mild reflux of contrast into the upper abdominal IVC. Can not exclude acute right heart strain. Consider echocardiogram if not already performed. -Small left pleural effusion without loculation. Status: Acute (2) DVT of lower limb, acute: Problem comment: as above, left lower leg -Nonocclusive thrombus in the left common femoral, distal superficial femoral, popliteal and calf veins. -Occlusive superficial thrombosis involving great saphenous vein and GSV/common femoral vein junction. Status: Acute (3) Microcytic anemia: Problem comment: - new diagnosis 01/02/2025, unclear chronicity - MCV is 66-70 but iron studies elevated ....? - concerning for acute blood loss anemia vs hemolysis - gastritis symptoms + EGD findings on 01/03/2025 --Reflux esophagitis, no bleeding (dosed again with PPI, oral PPI to start 01/03) --Medium sized hiatal hernia --No specimen --Follow-up endoscopy, 3 months -Hemolysis?: elevated IRF, bili, LDH, iron. lysed blood cells in UA (GERRI, LDH, MR Spleen pending) - IV PPI, 2U PRBCs, follow Hgb, - reassuring colonoscopy in 2020 Status: Acute (4) CKD stage 3b, GFR 30-44 ml/min: Problem comment: - baseline outpatient creatinine 1.3-1.4 Status: Acute (5) Essential hypertension: Problem comment: - HOLDING home Lisinopril in the setting of possible acute bleed + recent outpatient hypotension Status: Acute Subjective Date Seen: 01/03/25 Interval history: Daily Progress Note - Hospital Medicine Day #: 2 CC: Anemia s/p transfusion of 2 units, Acute PE and DVT on heparin, recent suspected COVID, chronic comorbidities 24 HOUR UPDATE: feels much better after blood transfusions. No clinical bleeding overnight. No fever. No resp distess. Notable Labs, Micro, Rads, Interventions: CT abd/pelvis - -Multiple subcentimeter hypoattenuating foci throughout the spleen. Of indeterminate etiology. Recommend further evaluation with a dedicated splenic protocol MRI. Underlying differential considerations include splenic infectious process, or lymphoproliferative origin EGD --Reflux esophagitis, no bleeding --Medium sized hiatal hernia --No specimen --Follow-up endoscopy, 3 months MR abdomen -Scattered subcentimeter splenic lesions without splenomegaly. Imaging appearance is not specific for a single etiology, and in the absence of symptoms, most splenic lesions are not of clinical significance. The most common significant etiology would be a granulomatous inflammation/infection or fungal infection. Isolated splenic metastasis are extremely rare. The most common cause of metastasis to the spleen is melanoma. -Diffuse hepatic steatosis. Labs hemoglobin increase nicely after 2 units of red blood cells. 7.6 up to 10.4, 10.2 on final recheck at 3:00 a.m. - microcytic, elevated iron, elevated bilirubin, lysed red blood cells in urine - elevated IRF indicated responsive bone marrow - GERRI, haptoglobin, LDH, b12 and folate pending - peripheral smear pending Objective: happy, insightful, NAD Vitals: see above Lungs: Clear. Cardiac: S1S2. left leg: ropey varicosities, mild to moderate edema noted from thigh to ankle Disposition/Potential discharge - TBD - Today I spent 50minutes seeing the patient, reviewing Expanse and EPIC notes/diagnostics, discussing the care plan with our care time that includes social work, PT/OT, pharmacy, RT, group home and documenting my impressions and plan in the medical record. Exam Const: Vital Signs, click to edit/add: Vital Signs - 24 hr 01/02/25 13:41 01/02/25 13:45 01/02/25 14:00 Temperature Pulse Rate 114 H 101 H 92 Pulse Rate [Left A pical] Respiratory Rate 13 22 14 Blood Pressure Blood Pressure [Ri ght Arm] Pulse Oximetry 90 96 96 Oxygen Delivery Me thod 01/02/25 14:05 01/02/25 14:06 01/02/25 14:15 Temperature Pulse Rate 94 97 96 Pulse Rate [Left A pical] Respiratory Rate 18 15 26 H Blood Pressure Blood Pressure [Ri ght Arm] Pulse Oximetry 96 95 96 Oxygen Delivery Me thod 01/02/25 14:30 01/02/25 14:34 01/02/25 14:45 Temperature Pulse Rate 90 91 92 Pulse Rate [Left A pical] Respiratory Rate 18 32 H 20 Blood Pressure Blood Pressure [Ri ght Arm] Pulse Oximetry 95 96 Oxygen Delivery Me thod 01/02/25 15:00 01/02/25 15:05 01/02/25 15:15 Temperature Pulse Rate 90 88 87 Pulse Rate [Left A pical] Respiratory Rate 29 H 29 H 23 Blood Pressure Blood Pressure [Ri ght Arm] Pulse Oximetry 96 91 96 Oxygen Delivery Me thod 01/02/25 15:30 01/02/25 16:10 01/02/25 16:29 Temperature 99.2 F 98.2 F Pulse Rate 90 90 90 Pulse Rate [Left A pical] Respiratory Rate 18 18 18 Blood Pressure 137/78 141/80 H Blood Pressure [Ri ght Arm] Pulse Oximetry 96 96 94 Oxygen Delivery Me thod Room Air Room Air 01/02/25 16:59 01/02/25 17:06 01/02/25 17:17 Temperature 99.3 F 99.2 F Pulse Rate 94 89 Pulse Rate [Left A pical] 90 Respiratory Rate 18 18 Blood Pressure 145/88 H Blood Pressure [Ri ght Arm] 137/78 Pulse Oximetry 94 96 Oxygen Delivery Me thod Room Air Room Air 01/02/25 17:29 01/02/25 17:59 01/02/25 18:29 Temperature 98.3 F 98.2 F 98.6 F Pulse Rate 83 84 83 Pulse Rate [Left A pical] Respiratory Rate 18 18 18 Blood Pressure 144/88 H 143/81 H 160/89 H Blood Pressure [Ri ght Arm] Pulse Oximetry 96 94 95 Oxygen Delivery Me thod Room Air Room Air Room Air 01/02/25 19:00 01/02/25 19:12 01/02/25 19:29 Temperature 98.9 F 98.9 F 98.9 F Pulse Rate 84 84 Pulse Rate [Left A pical] 84 Respiratory Rate 18 18 18 Blood Pressure 156/91 H 165/84 H Blood Pressure [Ri ght Arm] 149/80 H Pulse Oximetry 95 95 95 Oxygen Delivery Me thod Room Air Room Air Room Air 01/02/25 20:00 01/02/25 20:30 01/02/25 21:00 Temperature 98.7 F 98.8 F 98.7 F Pulse Rate 80 84 83 Pulse Rate [Left A pical] Respiratory Rate 18 18 16 Blood Pressure 136/83 137/78 133/76 Blood Pressure [Ri ght Arm] Pulse Oximetry 95 96 95 Oxygen Delivery Me thod Room Air Room Air Room Air 01/02/25 21:30 01/02/25 22:30 01/02/25 23:00 Temperature 98.7 F 98.9 F 98.9 F Pulse Rate 87 88 Pulse Rate [Left A pical] 83 Respiratory Rate 16 16 18 Blood Pressure 140/80 H 141/76 H Blood Pressure [Ri ght Arm] 115/95 H Pulse Oximetry 97 96 94 Oxygen Delivery Me thod Room Air Room Air Room Air 01/02/25 23:00 01/02/25 23:00 01/02/25 23:37 Temperature Pulse Rate 77 Pulse Rate [Left A pical] Respiratory Rate 18 18 Blood Pressure Blood Pressure [Ri ght Arm] Pulse Oximetry 94 Oxygen Delivery Id thod Room Air 01/03/25 02:02 01/03/25 07:33 01/03/25 08:23 Temperature 98.4 F 98.8 F Pulse Rate 77 Pulse Rate [Left A pical] 95 84 Respiratory Rate 18 20 Blood Pressure Blood Pressure [Ri ght Arm] 127/86 139/86 Pulse Oximetry 94 93 Oxygen Delivery Me thod Room Air Room Air 01/03/25 08:23 01/03/25 08:23 01/03/25 13:02 Temperature 98.6 F Pulse Rate Pulse Rate [Left A pical] 84 83 Respiratory Rate 20 20 20 Blood Pressure Blood Pressure [Ri ght Arm] 142/86 H Pulse Oximetry 93 93 Oxygen Delivery Id thod Room Air Room Air Labs Labs: Laboratory Results - last 24 hr 01/02/25 01/02/25 01/02/25 12:10 16:37 17:25 WBC RBC Hgb Hct MCV MCH MCHC RDW Coeff of Marc Plt Count Neut % (Auto) Lymph % (Auto) Craven % (Auto) Eos % (Auto) Baso % (Auto) Neut # (Auto) Lymph # (Auto) [place]ven # (Auto) Eos # (Auto) Baso # (Auto) Abs Immat Gran (auto) Imm/Tot Granulo (auto) Absolute Retic Percent Retic Immature Retic Fraction Retic Hgb Equivalent INR 1.77 H APTT 32 VBG pH VBG pCO2 VBG pO2 VBG HCO3 Sodium Potassium Chloride Carbon Dioxide Anion Gap BUN Creatinine Estimated Creat Clear Estimated GFR Glucose Lactate Calcium Magnesium Iron TIBC % Saturation Ferritin Total Bilirubin GGT AST ALT Alkaline Phosphatase Troponin I C-Reactive Protein Total Protein Albumin Lipase Urine Color Yellow Urine Appearance Clear Urine pH 5.0 Ur Specific [place] <= 1.005 Urine Protein Negative Urine Glucose (UA) Negative Urine Ketones Negative Urine Blood Trace-lysed A Urine Nitrite Negative Urine Bilirubin Negative Urine Urobilinogen 0.2 Ur Leukocyte Esterase Negative Urine RBC 0-2 Urine WBC 0-2 Ur Squamous Epith Cells None Urine Bacteria None Lab Acknowledgement Blood Type AB Positive Antibody Screen NEGATIVE Crossmatch ([facility]) See Detail 01/02/25 01/03/25 01/03/25 22:45 03:04 08:30 WBC 11.21 H RBC 4.77 Hgb 10.4 L 10.2 L Hct 33.2 MCV 70 L MCH 21 L MCHC 31 L RDW Coeff of Marc 21.5 H Plt Count 352 Neut % (Auto) 81.4 H Lymph % (Auto) 8.8 L Craven % (Auto) 7.9 Eos % (Auto) 1.0 Baso % (Auto) 0.5 Neut # (Auto) 9.10 H Lymph # (Auto) 1.00 Craven # (Auto) 0.90 Eos # (Auto) 0.10 Baso # (Auto) 0.10 Abs Immat Gran (auto) 0.00 Imm/Tot Granulo (auto) 0.4 Absolute Retic 0.07 Percent Retic 1.5 Immature Retic Fraction 44.5 H Retic Hgb Equivalent 16.0 L INR 1.46 H APTT 139 H* VBG pH VBG pCO2 VBG pO2 VBG HCO3 Sodium 135 Potassium 3.8 Chloride 102 Carbon Dioxide 28 Anion Gap 5 L BUN 17 Creatinine 1.3 Estimated Creat Clear 28.51 Estimated GFR 44 Glucose 108 Lactate Calcium 8.2 L Magnesium 1.9 Iron 320 H TIBC 368 % Saturation 87 H Ferritin 22.7 Total Bilirubin 4.0 H GGT 21 AST 28 ALT 17 Alkaline Phosphatase 146 Troponin I 0.02 C-Reactive Protein 5.0 H Total Protein 5.9 L Albumin 3.3 Lipase 110 Urine Color Urine Appearance Urine pH Ur Specific [place] Urine Protein Urine Glucose (UA) Urine Ketones Urine Blood Urine Nitrite Urine Bilirubin Urine Urobilinogen Ur Leukocyte Esterase Urine RBC Urine WBC Ur Squamous Epith Cells Urine Bacteria Lab Acknowledgement Test Added Blood Type Antibody Screen Crossmatch ([facility]) 01/03/25 01/03/25 01/03/25 08:34 09:25 13:14 WBC RBC Hgb Hct MCV MCH MCHC RDW Coeff of Marc Plt Count Neut % (Auto) Lymph % (Auto) Craven % (Auto) Eos % (Auto) Baso % (Auto) Neut # (Auto) Lymph # (Auto) Craven # (Auto) Eos # (Auto) Baso # (Auto) Abs Immat Gran (auto) Imm/Tot Granulo (auto) Absolute Retic Percent Retic Immature Retic Fraction Retic Hgb Equivalent INR APTT 99 H VBG pH 7.484 H VBG pCO2 39 L VBG pO2 < 30.1 VBG HCO3 29 H Sodium Potassium Chloride Carbon Dioxide Anion Gap BUN Creatinine Estimated Creat Clear Estimated GFR Glucose Lactate 1.1 Calcium Magnesium Iron TIBC % Saturation Ferritin Total Bilirubin GGT AST ALT Alkaline Phosphatase Troponin I C-Reactive Protein Total Protein Albumin Lipase Urine Color Urine Appearance Urine pH Ur Specific [place] Urine Protein Urine Glucose (UA) Urine Ketones Urine Blood Urine Nitrite Urine Bilirubin Urine Urobilinogen Ur Leukocyte Esterase Urine RBC Urine WBC Ur Squamous Epith Cells Urine Bacteria Lab Acknowledgement New Spec Needed A Blood Type Antibody Screen Crossmatch ([facility])
[2025-01-03] MEDS: ENOXAPARIN 80 MG/0.8 ML INJ 75 MG SUBCUT (13:59)
[2025-01-03 14:00] LABS: Lactate Dehydrogenase* 387 U/L (120-246)
[2025-01-03] MEDS: PANTOPRAZOLE SODIUM 40 MG INJ IVP (14:02)
[2025-01-03 14:09] LABS: Hematocrit 38.4 % (33.0-51.0); Hemoglobin* 11.7 gm/dL (12.0-16.0); Mean Corpuscular HGB Conc 31 gm/dL (32-36); Mean Corpuscular Hemoglobin 21 pg (26-34); Mean Corpuscular Volume 70 fL (80-100); Platelet Count* 352 K/uL (140-440); Red Blood Count 5.51 m/uL (4.00-5.20); White Blood Count* 10.23 K/uL (4.50-11.00)
[2025-01-03 14:22] LABS: Slide Review Reflex No
[2025-01-03 14:23] LABS: Albumin* 3.9 g/dL (3.3-5.0)
[2025-01-03 14:26] LABS: Alanine Aminotransferase* 21 U/L (4-35); Alkaline Phosphatase* 178 U/L (40-150); Aspartate Amino Transferase* 33 U/L (12-35); Bilirubin Direct* 0.4 mg/dL (0.0-0.5); Bilirubin Total* 2.2 mg/dL (0.1-1.5); Total Protein* 6.6 g/dL (6.0-8.3)
[2025-01-03 14:31] LABS: PCR FLU A Negative PCR FLU A (Negative); PCR FLU B Negative PCR FLU B (Negative); PCR RSV Negative PCR RSV (Negative); SARS PCR* Negative SARS-CoV-2 (Negative)
[2025-01-03 14:41] LABS: Immature Reticulocyte Fraction 21.8 % (3.0-15.9); Reticulocyte Percent 1.9 % (0.5-2.0); Reticulocytes Absolute 0.09 # (0.03-0.08)
[2025-01-03 15:27] LABS: SARS Antigen* Negative (Negative)
[2025-01-03 15:30] LABS: Vitamin B12* 347 pg/mL (243-894)
--- NOTE | 2025-01-03 18:08 | PC.NURSE ---
End of Shift: Patient pleasant and cooperative. Patient vitally stable, lungs clear but left side more diminished than right, BS WNL, IV's SL and intact. Patient denies pain. Patient independent in room. Patient tolerating regular diet, urinating well, and had 1 BM. Tele=NSR/SA. Left LE is edematous, in the area the DVT appears to be.
[2025-01-03] MEDS: ATORVASTATIN CALCIUM 10 MG TABLET 20 MG PO (18:18)
[2025-01-03] MEDS: APIXABAN 5 MG TABLET 10 MG PO (20:40)
[2025-01-04 03:00] VITALS: BP 124/71; PULSE 84; RESP 16; TEMP 37.1; O2SAT 93
[2025-01-04] MEDS: OMEPRAZOLE 20 MG CAPSULE DR 40 MG PO (06:16)
[2025-01-04 06:19] LABS: HCO3 VBG 26 mmol/L (21-28); PCO2 VBG 34 mmHG (40-50); PO2 VBG 61.1 mmHG (25-47); pH VBG 7.491 (7.32-7.43)
--- NOTE | 2025-01-04 06:19 | PC.NURSE ---
End of Shift 8982-2325: AxOx4, pleasant, and cooperative with cares. Pt denies pain throughout the shift. Indep in the room, using the bathroom. Continent of the bladder. LLE edematous, area in which the DVT appears to be. Pedal pulses strong, skin warm to touch. Pt slept for majority of the night. VSS on RA. Pt appears resting with call light in reach.
[2025-01-04 06:24] LABS: Basophils Absolute Auto 0.06 K/uL (0.00-0.30); Basophils Percent Auto 0.6 % (0.0-3.0); Eosinophils Absolute Auto 0.16 K/uL (0.00-0.50); Eosinophils Percent Auto 1.7 % (0.0-7.0); Hematocrit 33.6 % (33.0-51.0); Hemoglobin* 10.2 gm/dL (12.0-16.0); Immature Granulocytes Abs Auto 0.04 K/uL (0.00-0.30); Immature Granulocytes Pct Auto 0.4 %; Lymphocytes Percent Auto 8.3 % (20-44); Mean Corpuscular HGB Conc 30 gm/dL (32-36); Mean Corpuscular Hemoglobin 21 pg (26-34); Mean Corpuscular Volume 70 fL (80-100); Monocytes Percent Auto 7.1 % (0.0-11.0); Neutrophils Percent Auto 81.9 % (42.0-72.0); Platelet Count* 404 K/uL (140-440); RDW Coefficient of Variation % 22.1 % (11.5-15.5); Red Blood Count 4.78 m/uL (4.00-5.20); White Blood Count* 9.27 K/uL (4.50-11.00)
[2025-01-04 06:25] LABS: Slide Review Reflex No
[2025-01-04 06:37] LABS: Albumin* 3.2 g/dL (3.3-5.0); Chloride* 103 mmol/L (96-114); Potassium* 3.8 mmol/L (3.6-5.1); Sodium* 135 mmol/L (135-149)
[2025-01-04 06:39] LABS: Blood Urea Nitrogen* 20 mg/dL (7-30); Creatinine* 1.3 mg/dL (0.5-1.5); Est. Creatinine Clearance* 28.51; Estimated Glomerular Filt Rate 44 ml/min
[2025-01-04 06:40] LABS: Alanine Aminotransferase* 20 U/L (4-35); Alkaline Phosphatase* 134 U/L (40-150); Anion Gap 7 mEq/L (7-15); Aspartate Amino Transferase* 30 U/L (12-35); Bilirubin Direct* 0.4 mg/dL (0.0-0.5); Carbon Dioxide* 25 mmol/L (20-32); Total Protein* 5.7 g/dL (6.0-8.3)
[2025-01-04 06:41] LABS: Calcium* 8.1 mg/dL (8.4-10.6); Glucose* 119 mg/dL (60-115); Phosphorus* 2.9 mg/dL (2.5-4.5)
[2025-01-04 06:43] LABS: C Reactive Protein* 3.3 mg/dL (0.5-1.0)
[2025-01-04 07:00] VITALS: BP 121/83; PULSE 94; RESP 16; RESP 94; TEMP 36.9; O2SAT 95
[2025-01-04 07:30] VITALS: PULSE 89
[2025-01-04 09:03] LABS: Folate, Serum 17.1 ng/mL (>=5.9)
[2025-01-04] MEDS: APIXABAN 5 MG TABLET 10 MG PO (09:25)
--- NOTE | 2025-01-04 10:34 | PC.NURSE ---
Nursing Care Hours: [id number] Pt this shift calm and cooperative. alert and oriented. No c/o pain. VSS, on RA. Tolerating regular diet and is independent in the room. Sinus arrhythmia captured on tele without symptoms. Head to toe skin check done by financial writer and hospitalist, looking for signs of melanoma. One spot on upper anterior chest was suspicious and pt advised to follow up with human resources representative. Discharge instruction and care went over with pt and family member. Bilat IV removed for discharge. Wheeled out to vehicle in stable condition.
--- NOTE | 2025-01-04 12:23 | P.DS_ITS ---
DS: Providers Provider Date Seen: 01/04/25 Date of admission: 01/02/25 16:42 Primary care physician: Not a Local Provider Admitting Clinician: Ngozi Mata MD Attending Physician on discharge: CB Ordonez, [facility]JenniferC [facility] Date of Discharge: 01/04/25 DS: Diagnosis Discharge Diagnosis (1) Pulmonary emboli: Status: Acute Problem details: - new diagnosis 01/02/25 - eliquis 10mg bid for 7 days and then 5 mg bid until she has a hematology referral. - TTE to evaluate for right heart strain - No strain but likely underlying tricuspid reg with increased right atrial pressures. -Bilateral lower lobe pulmonary emboli beginning at the segmental level. Overall, the embolus burden is fairly mild. Patient is discharged on Eliquis, dosing as above, follow-up with PCP for ongoing medication management. (2) DVT of lower limb, acute: Status: Acute Problem details: as above, left lower leg -Nonocclusive thrombus in the left common femoral, distal superficial femoral, popliteal and calf veins. -Occlusive superficial thrombosis involving great saphenous vein and GSV/common femoral vein junction. Eliquis management as above (3) Microcytic anemia: Status: Acute Problem details: - new diagnosis 01/02/2025, unclear chronicity - MCV is 66-70 but iron studies elevated; retic count elevated, bili elevated, lysed red cells in urine, elevated LDH but neg JESSICA and hemoglobin was stable after transfusion - mixed support for subacute hemolytic anemia. - concerning for acute blood loss anemia (esophagitis vs hemolysis - EGD 01/03/2025 --Reflux esophagitis, no bleeding (dosed again with PPI, oral PPI to start 01/03) --Medium sized hiatal hernia --No specimen --Follow-up endoscopy, 3 months -Hemolysis?: elevated IRF, bili, LDH, iron. lysed blood cells in UA (GERRI, LDH, MR Spleen pending) - IV PPI, 2U PRBCs, follow Hgb, - reassuring colonoscopy in 2020 On discharge, hemoglobin is 10.2. EGD completed yesterday, findings as noted. Continue PPI. Follow-up endoscopy recommended in [address] abdomen and MRI showing scattered subcentimeter splenic lesions without splenomegaly. Skin assessment completed. Patient will follow-up with her dumpman for proper exam. Outpatient follow-up with PCP for ongoing workup. (4) CKD stage 3b, GFR 30-44 ml/min: Status: Acute Problem details: - baseline outpatient creatinine 1.3-1.4 (5) Essential hypertension: Status: Acute Problem details: - HOLDING home Lisinopril in the setting of possible acute bleed + recent outpatient hypotension. Outpatient follow-up with PCP for further medication management. (6) Splenic lesion: Status: Acute Problem details: Scattered subcentimeter splenic lesions without splenomegaly. Imaging appearance is not specific for a single etiology, and in the absence of symptoms, most splenic lesions are not of clinical significance. The most common significant etiology would be a granulomatous inflammation/infection or fungal infection. Isolated splenic metastasis are extremely rare. The most common cause of metastasis to the spleen is melanoma. Limited skin assessment done prior to discharge. Patient will follow-up with her dumpman for full proper evaluation. DS: Summary Hospital Course Hospital Course: Course of care and details as noted above. Remainder of chronic medical comorbidities were monitored and managed with home medications. Status at Discharge Functional status at discharge: independent ambulation Overall status at discharge: patient is back to baseline Time Spent with Patient Time attestation: Total time spent providing and/or coordinating discharge services: Time spent: Greater than 30 minutes Exam Narrative: Exam Narrative: PHYSICAL EXAM General: Pleasant, conversant, NAD Cardiovascular: RRR Pulmonary: No dyspnea Neurological: Alert, answering questions appropriately Skin: Warm, dry. Several skin lesions, one dark with irregularities right collarbone area worthy or further derm evaluation Const: Vital Signs, click to edit/add: Vital Signs - 24 hr 01/03/25 13:02 01/03/25 15:07 01/03/25 15:07 Temperature 98.6 F 98.7 F Pulse Rate Pulse Rate [Left A pical] 83 94 94 Respiratory Rate 20 20 20 Blood Pressure [Ri ght Arm] 142/86 H 104/74 Pulse Oximetry 93 95 Oxygen Delivery Me thod Room Air Room Air 01/03/25 15:07 01/03/25 15:34 01/03/25 19:00 Temperature 98.3 F Pulse Rate 96 Pulse Rate [Left A pical] 91 Respiratory Rate 20 18 Blood Pressure [Ri ght Arm] 112/75 Pulse Oximetry 95 93 Oxygen Delivery Me thod Room Air Room Air 01/03/25 22:45 01/03/25 23:00 01/03/25 23:00 Temperature 98.9 F Pulse Rate 88 Pulse Rate [Left A pical] 95 Respiratory Rate 16 16 Blood Pressure [Ri ght Arm] 117/77 Pulse Oximetry 95 95 Oxygen Delivery Me thod Room Air Room Air 01/04/25 03:00 01/04/25 07:00 01/04/25 07:00 Temperature 98.8 F Pulse Rate Pulse Rate [Left A pical] 84 94 Respiratory Rate 16 16 16 Blood Pressure [Ri ght Arm] 124/71 Pulse Oximetry 93 95 Oxygen Delivery Me thod Room Air Room Air 01/04/25 07:00 01/04/25 07:30 Temperature 98.5 F Pulse Rate 89 Pulse Rate [Left A pical] Respiratory Rate 94 H Blood Pressure [Ri ght Arm] 121/83 Pulse Oximetry 95 Oxygen Delivery Me thod Room Air DS: Data Data Completed and Pending Labs on day of discharge: Labs from last 24 hours 01/04/25 01/03/25 01/03/25 05:54 14:19 14:04 WBC 9.27 RBC 4.78 Hgb 10.2 L Hct 33.6 MCV 70 L MCH 21 L MCHC 30 L RDW Coeff of Marc 22.1 H Plt Count 404 Neut % (Auto) 81.9 H Lymph % (Auto) 8.3 L [place] % (Auto) 7.1 Eos % (Auto) 1.7 Baso % (Auto) 0.6 Neut # (Auto) 7.60 H Lymph # (Auto) 0.80 L [place] # (Auto) 0.70 Eos # (Auto) 0.16 Baso # (Auto) 0.06 Abs Immat Gran (auto) 0.04 Imm/Tot Granulo (auto) 0.4 Absolute Retic Percent Retic Immature Retic Fraction Retic Hgb Equivalent VBG pH 7.491 H VBG pCO2 34 L VBG pO2 61.1 H VBG HCO3 26 Sodium 135 Potassium 3.8 Chloride 103 Carbon Dioxide 25 Anion Gap 7 BUN 20 Creatinine 1.3 Estimated Creat Clear 28.51 Estimated GFR 44 Glucose 119 H Haptoglobin Calcium 8.1 L Phosphorus 2.9 Total Bilirubin 1.0 Direct Bilirubin 0.4 AST 30 ALT 20 Alkaline Phosphatase 134 Lactate Dehydrogenase C-Reactive Protein 3.3 H Total Protein 5.7 L Albumin 3.2 L Vitamin B12 RBC Fol Isidra for Serum TSH 3.240 SARS-CoV-2 (PCR) Influenza Type A (PCR) Influenza Type B (PCR) RSV (PCR) SARS-CoV-2 Ag (Rapid) Lab Acknowledgement Test Added Test Added Direct Antiglob Test 01/03/25 01/03/25 01/03/25 13:54 13:38 13:36 WBC 10.23 RBC 5.51 H Hgb 11.7 L Hct 38.4 MCV 70 L MCH 21 L MCHC 31 L RDW Coeff of Marc Plt Count 352 Neut % (Auto) Lymph % (Auto) [place] % (Auto) Eos % (Auto) Baso % (Auto) Neut # (Auto) Lymph # (Auto) [place] # (Auto) Eos # (Auto) Baso # (Auto) Abs Immat Gran (auto) Imm/Tot Granulo (auto) Absolute Retic Percent Retic Immature Retic Fraction Retic Hgb Equivalent VBG pH VBG pCO2 VBG pO2 VBG HCO3 Sodium Potassium Chloride Carbon Dioxide Anion Gap BUN Creatinine Estimated Creat Clear Estimated GFR Glucose Haptoglobin Pending Calcium Phosphorus Total Bilirubin 2.2 H Direct Bilirubin 0.4 AST 33 ALT 21 Alkaline Phosphatase 178 H Lactate Dehydrogenase 387 H C-Reactive Protein Total Protein 6.6 Albumin 3.9 Vitamin B12 347 RBC Fol Isidra for Serum 17.1 TSH SARS-CoV-2 (PCR) Negative SARS-CoV-2 Influenza Type A (PCR) Negative PCR FLU A Influenza Type B (PCR) Negative PCR FLU B RSV (PCR) Negative PCR RSV SARS-CoV-2 Ag (Rapid) Negative Lab Acknowledgement Test Added Direct Antiglob Test NEGATIVE 01/03/25 01/02/25 13:14 12:10 WBC RBC Hgb Hct MCV MCH MCHC RDW Coeff of Marc Plt Count Neut % (Auto) Lymph % (Auto) [place] % (Auto) Eos % (Auto) Baso % (Auto) Neut # (Auto) Lymph # (Auto) [place] # (Auto) Eos # (Auto) Baso # (Auto) Abs Immat Gran (auto) Imm/Tot Granulo (auto) Absolute Retic 0.09 H Percent Retic 1.9 Immature Retic Fraction 21.8 H Retic Hgb Equivalent 14.0 L VBG pH VBG pCO2 VBG pO2 VBG HCO3 Sodium Potassium Chloride Carbon Dioxide Anion Gap BUN Creatinine Estimated Creat Clear Estimated GFR Glucose Haptoglobin Calcium Phosphorus Total Bilirubin Direct Bilirubin AST ALT Alkaline Phosphatase Lactate Dehydrogenase C-Reactive Protein Total Protein Albumin Vitamin B12 RBC Fol Isidra for Serum TSH SARS-CoV-2 (PCR) Influenza Type A (PCR) Influenza Type B (PCR) RSV (PCR) SARS-CoV-2 Ag (Rapid) Lab Acknowledgement New Spec Needed A Direct Antiglob Test Imaging Abdomen MRI: Attestation: I have reviewed the pertinent imaging results. Radiologist's impression: FINDINGS: Normal spleen size and position. There are 2 small well-circumscribed T2 hyperintensities in the spleen. These measure 4 and 5 millimeters. See series 8, image 16. These are very slightly hypoenhancing compared to the adjacent spleen. See series 17, image 24. They do not restrict diffusion in the manner typical of the normal splenic parenchyma. Elsewhere within the spleen there are some T2 hypointensities that are equally small and demonstrate similar early hypoenhancement with eventual normalization to the background spleen. All of the discrete lesions are isointense on T1 weighted images. The splenic artery and vein are normal. Significant diffuse hepatic steatosis. No focal liver lesions. Normal gallbladder and bile ducts. Normal pancreas and pancreatic duct. Normal adrenal glands. Normal kidneys. No ascites. No adenopathy. Normal caliber of the abdominal aorta and its major branches. No IVC or renal vein thrombus. The mesenteric, portal, and hepatic veins are all patent. Small left pleural effusion is similar to prior. Small hiatal hernia, sliding type. No volvulus or inflammation. Inflamed no dilated or bowel [id number]. IMPRESSION: 1. Scattered subcentimeter splenic lesions without splenomegaly. Imaging appearance is not specific for a single etiology, and in the absence of symptoms, most splenic lesions are not of clinical significance. The most common significant etiology would be a granulomatous inflammation/infection or fungal infection. Isolated splenic metastasis are extremely rare. The most common cause of metastasis to the spleen is melanoma. 2. Diffuse hepatic steatosis. CT abdomen pelvis: Attestation: I have reviewed the pertinent imaging results. Radiologist's impression: Lower chest: Stable small left effusion and associated passive atelectasis. ABDOMEN: Liver: Normal enhancement. No focal suspicious hepatic lesions. Gallbladder and biliary: Vicarious excretion of contrast gallbladder. Normal caliber bile ducts. Spleen: Multiple subcentimeter hypoattenuating foci throughout the spleen. Pancreas: Normal enhancement without peripancreatic inflammatory changes or ductal dilatation. Adrenal glands: Normal adrenal glands. Kidneys and ureters: Normal enhancement. No radio-opaque calculi. No hydroureteronephrosis. GI tract: Large hiatal hernia. Normal caliber small and large bowel loops. Normal appendix. Vascular structures: Normal caliber abdominal aorta. Lymph nodes: No lymphadenopathy in the abdomen or pelvis by size criteria. Peritoneum: No free air, free fluid, or focal drainable fluid collection. PELVIS: Genitourinary system: Retained contrast in the urinary bladder. Urinary bladder is relatively decompressed. Atrophic uterus. SKELETAL STRUCTURES AND SOFT TISSUES: Pubic symphysis arthrosis. Lumbar spondylosis. IMPRESSION: 1. No discrete acute abdominal or pelvic process. No obstruction. No definite imaging findings to explain the reported clinical symptoms. 2. Multiple subcentimeter hypoattenuating foci throughout the spleen. Of indeterminate etiology. Recommend further evaluation with a dedicated splenic protocol MRI. Underlying differential considerations include splenic infectious process, or lymphoproliferative origin. CTA chest: Attestation: I have reviewed the pertinent imaging results. Radiologist's impression: PE: Well-timed contrast bolus. There are bilateral pulmonary emboli. The most proximal emboli or at the segmental level in both lower lobes. None of the more proximal emboli are completely occlusive but some of the distal emboli are normal caliber main pulmonary artery. Mildly dilated right heart chambers. Small volume reflux of contrast below the diaphragm. Airway: Expiratory appearance of the trachea. Lungs: Expiratory appearance of the lungs. Within the aerated portion, no worrisome nodules or mass. There is some atelectasis in the left lower lobe that appears compressive. No consolidations. No definitive infarcts. No pulmonary edema. Pleura: There is a small left pleural effusion that is layering posteriorly and inferiorly without any loculation. No pneumothorax. Lymph nodes: No thoracic adenopathy. Mediastinum: No pneumomediastinum. Moderate sliding-type hiatal hernia without any inflammation. Heart and great vessels: No pericardial effusion. Normal cardiac chamber size. Scattered atherosclerotic plaques. No aortic aneurysm. Chest wall: Normal. No masses. Upper abdomen: Normal. Bones: No fractures. No focal bone lesions. IMPRESSION: 1. Bilateral lower lobe pulmonary emboli beginning at the segmental level. Overall, the embolus burden is fairly mild. 2. The main pulmonary artery is not dilated, but the right heart chambers are dilated and there is mild reflux of contrast into the upper abdominal IVC. Can not exclude acute right heart strain. Consider echocardiogram if not already performed. 3. Small left pleural effusion without loculation. Venous duplex: Attestation: I have reviewed the pertinent imaging results. Radiologist's impression: Nonocclusive deep venous thrombosis is seen involving left common femoral vein as well as within the CFV/GSV junction. Great saphenous vein is entirely occluded with occlusive thrombus. Proximal and mid superficial femoral vein is compressible with no obvious intraluminal clot. Profunda femoral is compressible. Subocclusive thrombus is seen extending from distal superficial femoral vein into the calf veins. Contralateral right common femoral vein is patent and compressible. IMPRESSION: 1. Nonocclusive thrombus in the left common femoral, distal superficial femoral, popliteal and calf veins. 2. Occlusive superficial thrombosis involving great saphenous vein and GSV/common femoral vein junction. Discharge Plan Discharge Disposition: Home, Self-Care Date of Admission: 01/02/25 16:42 Attending Provider on Discharge: Kimmie Pfeiffer Primary Care Provider: Provider,Not a Local Condition: Improved Anticipated Discharge Date/Time: 01/04/25 09:06 Discharge Medications: New omeprazole 20 mg Capsule,Delayed Release(Dr/Ec) 40 mg PO DAILY@0700 Qty: 60 0RF Eliquis 5 mg Tablet 10 mg PO BID Qty: 60 0RF Rx Instructions: Two tabs twice a day thru Monday the . Then one tab twice a day until you discuss with MD Continued atorvastatin 20 mg tablet 20 mg PO QPM lisinopril 20 mg tablet 10 mg PO DAILY loratadine 10 mg tablet 10 mg PO DAILY PRN calcium-vitamin D3-vitamin K [Citracal-D3 Soft Chew] 500 mg-1,000 unit-40 mcg tablet,chewable 2 tab PO DAILY Discontinued aspirin 81 mg tablet,delayed release (DR/EC) 81 mg PO DAILY Discharge Orders: Discharge Order (Routine); Ordered 01/04/25 Ordered By: Kimmie Pfeiffer Patient Education: Omeprazole (By mouth), Apixaban (By mouth), Pulmonary Embolism (GEN), Deep Vein Thrombosis (GEN) Additional Instructions: Talk with PCP regardin. How long will you need to be on Eliquis? In her opinion is this provoked or unprovoked clot? She may elect to send you to a energy efficient site manager. 2. She should follow up on your labs (CBC, CMP, Retic Count, LDH, maybe a f/u Coomb's test) Again, a energy efficient site manager can discuss your labs and if there is concern about your bone marrow and the anemia. 3. Talk to her about the spleen MRI - she may want to send you to a dumpman to be checked for Melanoma (rare issue) or repeat imaging at some point. 4. You need to take the acid suellen medication (omeprazole) each morning 1 hour before food intake. Our general surgeon wanted a f/u EGD in 3 months. Activity Level: No Restrictions Discharge Diet: Regular Follow Up Appointments: Provider,Not a Local [Primary Care Provider] - Emily Mccullough DO [Referring] - 01/10/25 9:55 am ([facility] for follow-up.) Forms: [employer] Info Instructions
[2025-01-05 04:57] LABS: Haptoglobin 318 mg/dL (30-200)
== END 2025-01-04 10:25 | disposition home or self-care (01) | DRG 811 ==
LOC: ED 13:49 → MEDSURG 15:32
PROVIDERS: Family Medicine; Admitting Provider Family Medicine; Emergency Provider Emergency Medicine Emergency Medical Services; Visit Provider Family Medicine
DX: D50.9 Iron deficiency anemia, unspecified (principal); I26.99 Other pulmonary embolism without acute cor pulmonale; I82.412 Acute embolism and thrombosis of left femoral vein; I82.4Z2 Acute embolism and thrombosis of unspecified deep veins of left distal lower extremity; I82.432 Acute embolism and thrombosis of left popliteal vein; I82.462 Acute embolism and thrombosis of left calf muscular vein; K44.9 Diaphragmatic hernia without obstruction or gangrene; I12.9 Hypertensive chronic kidney disease with stage 1 through stage 4 chronic kidney disease, or unspecified chronic kidney disease; N18.32 Chronic kidney disease, stage 3b; D73.89 Other diseases of spleen; E78.5 Hyperlipidemia, unspecified; K21.00 Gastro-esophageal reflux disease with esophagitis, without bleeding
CPT/HCPCS: 00731; 36415; 36430; 43235; 71275; 74177; 74183; 80048; 80053; 80069; 80076; 81001; 82607; 82728; 82746; 82803; 82977; 83010; 83540; 83550; 83605; 83615; 83690; 83735; 84443; 84484; 85018; 85025; 85027; 85045; 85610; 85651; 85730; 86140; 86850; 86880; 86900; 86901; 86922; 87426; 87631; 93005; 93306; 93971; 99100; 99140; 99284; 99285; A9270; A9575; J1644; J1650; J1940; J2470; J2704; J3490; P9016; Q9957; Q9967

== ENCOUNTER 2025-06-10 07:18 | Emergency (ER) | payer MEDICARE, SELFPAY ==
--- OUTSIDE RECORDS SUMMARY | 2025-06-10 07:21 | XMS_ITS | Clinical Summary ---
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 60 Tablet 3 01/11/20 25 Active atorvastatin 20 mg tabletIndicatio ns:Dyslipidemia Take 1 Tablet (20 mg) by mouth at bedtime. 100 Tablet 3 02/06/20 25 Active ferrous gluconate 324 mg (37 mg iron) tabletIndicatio ns:Iron deficiency anemia secondary to inadequate dietary iron intake Take 1 Tablet by mouth once daily with a meal. 90 Tablet 3 05/13/20 25 Active phenylephrine (Preparation H (pe)) 0.25 % suppositoryIndi cations:Bleedin g internal hemorrhoids Insert 1 Suppository rectally four times daily. 12 Suppository 06/09/20 25 Active ferrous gluconate 324 mg (37 mg iron) tabletIndicatio ns:Iron deficiency anemia secondary to inadequate dietary iron intake Take 1 Tablet by mouth once daily with a meal. 90 Tablet 1 01/14/20 25 025 Discontin ued(Reord er (E-cancel not sent)) Active Problems Problem Noted Date Diagnosed Date Ascending aorta dilation 02/05/2025 Overview (02/05/2025): Recommend an annual echocardiogram. 01/2025 PE (pulmonary thromboembolism) 01/10/2025 Microcytic anemia 01/10/2025 Fatty liver disease, nonalcoholic 02/07/2024 Overview (02/07/2024): [...] 04/14/2023 by MICKEY Nava. 05/2020 - LEFT NONDENOMINATIONAL, Basal cell carcinoma, nodular type: MOHS 07/21/2020 [...] Encounters Date Type Department Care Team Description 06/09/2025 8:15 AM CDT Office Visit [facility] [address] [place] [phone] Shelia Titus NP Hemorrhoids 06/09/2025 Refill [facility] [address] [place] [address] Emily Mccullough, Refill Request (Eliquis) 06/09/2025 Travel 06/09/2025 Nurse Triage [facility] [address] [place] [address] Emily Mccullough, Bleeding 05/14/2025 1:00 PM CDT Office Visit [facility] [place] [address] [place] [phone] Cristiane Piper MBBS Follow Up (3 month follow up) 05/14/2025 Travel 05/14/2025 Telephone [facility] [address] [facility] [id number] Emily Mccullough, DO Results 05/13/2025 Orders Only [facility] [address] [place] [id number] Emily Mccullough, DO <No scans attached> 05/12/2025 10:00 AM CDT Orders Only [facility] [address] [place] [id number] Lab, [facility] 05/12/2025 Travel 05/06/2025 9:30 AM CDT Nutrition/Dietici an [facility] [address] [place] [id number] 05/06/2025 Travel 03/24/2025 9:50 AM CDT Office Visit [facility] [address] [place] [id number] Anjali Simon MD Derm Problem 03/24/2025 Travel from Last 3 Months Immunizations Immunization Administration Dates Next Due COVID-19 vaccine (Fuzmo-Bio NTech 30mcg/0.3mL) JAKE BRYSON 09/15/2021,01/28/2021,01/07/2021 Influenza RIV4 (Age 18+ Year s) PRESERV FREE 07/25/2019 Influenza Virus, Unspecified 06/16/2018,07/15/20 17 Influenza, High-dose Inactivated 07/18/2024 Influenza, High-dose Quadriv alent Inactivated 07/22/2023,08/08/2022,06/30/2021,2019 Influenza, IIV4 07/30/2016 Pneumococcal Poly,23-Valent (Pneumovax) 12/06/2019 Pneumococcal conj 13-Valent (Prevnar 13) 12/03/2018 Td (Age >=7 Years) 04/22/2005,04/04/2005 Tdap 01/29/2024,05/08/2013 Zoster (Zostavax-ZVL, live) 12/05/2015 Family History Medical History Relation Name Comments Heart Disease Father CT Cancer-breast Mother Hyperlipidemia Mother Postmenopausal breast cancer Mother Genetic Other Family history of:~~Breast Cancer: No~~Ovarian Cancer: No~~Colon CA: No~~Prostate/Testicular CA: No~~Osteoporosis: No~~Early CAD: Father CT at 59. ~~DM: Aunt ~~Thyroid Dz: No [...] Answer Date Recorded PHQ-2 TOTAL SCORE 0 02/05/2025 Social Connections Answer Date Recorded Do you often feel lonely or isolated from those around you? 0 06/09/2025 Financial Resource Strain Answer Date R ecorded Difficulty of Paying Living Expenses 3 06/09/2025 Difficulty of Paying Living Expenses Not on file 06/09/2025 Food Insecurity Answer Date Recorded Do you worry your food will run out before you are able to buy more? 1 06/09/2025 Transportation Needs Answer Date Record ed Does lack of transportation keep you from medica l appointments? 1 06/09/2025 Does lack of transportation keep you from work, meetings or getting things that you need? 1 06/09/2025 Housing Stability Answer Date Recorded What is your housing situation today? 1 06/09/2025 Utilities Answer Date Recorded Do you have trouble paying f or utilities (for example, heat, electricity, water, phone)? 1 06/09/2025 Comments No Sex and Gender Information Value Date Recorded Sex Assigned at Not on file Legal Sex Female 5:26 AM IMAGING AIDE Gender Identity Not on file Sexual Orientation Not on file Obstetrics History Last Filed Vital Signs Vital Sign Reading Time Taken Comments Blood Pressure 177/83 06/09/2025 8:21 AM CDT Pulse 80 06/09/2025 8:21 AM CDT Temperature 36.3 C (97.4 F) 06/09/2025 8:21 AM CDT Respiratory Rate 16 06/09/2025 8:21 AM CDT Oxygen Saturation 96% 06/09/2025 8:21 AM CDT Inhaled Oxygen Concentration - - Weight 70.5 kg (155 lb 6.4 oz) 05/14/2025 12:53 PM CDT Height 145.7 cm (4' 9.38) 02/05/2025 9:16 AM CD T Body Mass Index 33.18 02/05/2025 9:16 AM CDT Plan of Treatment Upcoming Encounters Date Type Department Care Team (Late st Contact Info) Description 07/29/2025 8:30 AM CDT Nutrition/Dietic [facility] [address] [place] [address] [address], [address] [facility] [place], [place] [phone] Health Maintenance Due Date Last Done Comments RSV vaccine for adults or (1 - Risk 60-74 years 1-dose series) 2013 Zoster (shingles) series for age 50+ (2 of 3) 01/30/2016 12/05/2015 COVID-19 vaccine series ( season) 2025 07/25/2024, 08/13/2023, 08/20/2022, Additional history exists Influenza Vaccine (#1) 2025 , 07/25/2019, 06/16/2018, Additional history exists BMI (ht and wt on same day) for age 18+ 02/05/2026 02/05/2025, 01/29/2025, 01/10/2025, Additional history exists Medicare Wellness for age 65+ 02/06/2026 02/05/2025, 01/15/2024, 01/27/2023, Additional history exists Depression screening for age 12+ 02/07/2026 02/07/2025, 02/05/2025, 01/15/2024, Additional history exists Mammogram for age 45-75 02/12/2026 02/13/20, 07/07/2023, 12/14/2021, Additional history exists Colonoscopy through age 75 07/13/202807/13, 07/13/2021, 07/13/2021, Additional history exists Lipids for age 45-75 02/05/2030 02/05/2025, 01/15/2024, 01/27/2023, Additional history exists Tetanus booster 01/28/2034 01/29/2024, 04/16, 04/22/2005, Additional history exists Hepatitis C screening for age 18-79 Completed 12/03/2018 Pneumococcal series for age 50+ Completed 12/06/2019, 12/03/2018 DEXA/DXA scan for age 65+ Completed 01/24/2024, 05/2020 Hepatitis B series for 19+ Aged Out N o longer eligible based on patient's age to complete this topic Procedures Procedure Name Priority Date/Time Associated Diagnosis Comments HEMOGLOBIN A1C Routine 05/12/2025 9:56 AM CDT Prediabetes CBC WITH AUTO DIFFERENTIAL Routine 05/12/2025 9:56 AM CDT Microcytic anemia XR MAMMO LEE BILAT SCREEN Routine 02/12/2025 1:07 PM CDT Visit for screening mammogram LIPID PANEL W REFLEX MEASURED LDL Routine 02/05/2025 9:50 AM CDT Dyslipidemia XR DXA BONE DENSITY 2 SITES AXIAL AND 1 SITE PERIPHERAL Routine 01/24/2024 10:40 AM CDT Osteopenia of multiple sites COLONOSCOPY SCREENING Routine 07/13/2021 8:59 AM CDT Polyp of colon, unspecified part of colon, unspecified type Screening for colon cancer ANTI HCV Routine 12/03/2018 11:37 AM IMAGING AIDE Need for hepatitis C screening test from Last 3 Months or Most Recently Relevant to Health Maintenance Results * (ABNORMAL) HEMOGLOBIN A1C (05/12/2025 9:56 AM CDT) HEMOGLOBIN A1C 5.8(H) <5.7 % [facility] Comment: For someone without known diabetes, a hemoglobin A1c value between 5.7% and 6.4% is consistent with prediabetes and should be confirmed with a follow-up test. For someone with known diabetes, a value <7% indicates that their diabetes is well controlled. A1c targets should be individualized based on duration of diabetes, age, comorbid conditions, and other considerations. This assay result is consistent with an increased risk of diabetes. Currently, no consensus exists regarding use of hemoglobin A1c for diagnosis of diabetes for children. Blood BLOOD SPECIMEN / Unknown 05/12/2025 9:56 AM CDT 05/12/2025 9:57 AM CDT Emily Mccullough DO CHEMISTRY Final Resul t [facility] [address] [place] [address], [facility] [address] [place] [address] * (ABNORMAL) CBC AND DIFFERENTIAL (05/12/2025 9:56 AM CDT) [facility] WHITE BLOOD CELL COUNT 6.5 3.8 - 10.8 Thousand/u L [facility] RED BLOOD CELL COUNT 5.75(H) 3.80 - 5.10 Million/uL [facility] HEMOGLOBIN 15.5 11.7 - 15.5 g/dL [facility] HEMATOCRIT 48.9(H) 35.0 - 45.0 % [facility] MCV 85.0 80.0 - 100.0 fL [facility] MCH 27.0 27.0 - 33.0 pg [facility] MCHC 31.7(L) 32.0 - 36.0 g/dL [facility] Comment: For adults, a slight decrease in the calculated MCHC value (in the range of 30 to 32 g/dL) is most likely not clinically significant; however, it should be interpreted with caution in correlation with other red cell parameters and the patient's clinical condition. RDW 14.9 11.0 - 15.0 % [facility] PLATELET COUNT 119(L) 140 - 400 Thousand/u L [facility] MPV 10.9 7.5 - 12.5 fL [facility] ABSOLUTE NEUTROPHILS 4,492 1,500 - 7,800 cells/uL [facility] ABSOLUTE LYMPHOCYTES 1,190 850 - 3,900 cells/uL [facility] ABSOLUTE MONOCYTES 533 200 - 950 cells/uL [facility] ABSOLUTE EOSINOPHILS 254 15 - 500 cells/uL [facility] ABSOLUTE BASOPHILS 33 0 - 200 cells/uL [facility] NEUTROPHILS 69.1 % [facility] LYMPHOCYTES 18.3 % [facility] MONOCYTES 8.2 % [facility] EOSINOPHILS 3.9 % [facility] BASOPHILS 0.5 % [facility] Blood BLOOD SPECIMEN / Unknown 05/12/2025 9:56 AM CDT 05/12/2025 9:57 AM CDT Cristiane CONROYBS HEMATOLOGY Final Result [facility] [address] [place] [address], [facility] [address] [place] [address] * XR MAMMO LEE BILAT SCREEN (02/12/2025 1:07 PM CDT) Anatomical Region Laterality Modality BREASTS, Breast Left, Breast Right Bilateral Mammography Impressions 02/14/2025 7:59 AM CDT There is no radiographic evidence for malignancy. Recommend annual mammograms. MAMMOGRAM ASSESSMENT: ACR 1 Negative PATIENTS: You will also receive a letter with your examination results in an easy to read format. If you have questions about your results, please contact your referring provider. Narrative 02/14/2025 7:59 AM CDT For Patients: As a result of the Century Cures Act, medical imaging exams and procedure reports are released immediately into your electronic medical record. You may view this report before your referring provider. If you have questions, please contact your health care provider. XR MAMMO LEE BILAT SCREEN [[id number]] CLINICAL HISTORY: This is an asymptomatic 69 y.o. patient. INDICATION FOR EXAM: Mammogram Screening. TECHNIQUE: CC and MLO views were obtained. This study was evaluated with the assistance of Computer-Aided Detection. Breast Tomosynthesis was used in interpretation. COMPARISON FILM: Yes 07/07/23 [facility] 12/14/21 [facility] FINDINGS: The breasts are heterogeneously dense, which may obscure small masses. There are no dominant masses, suspicious micro calcifications or areas of architectural distortion. us Emily Amaya Sadia DO MAMMO Final Resul t * (ABNORMAL) LIPID PANEL W REFLEX MEASURED LDL (02/05/2025 9:50 AM CDT) CHOLESTEROL, TOTAL 217(H) <200 mg/dL [facility] HDL CHOLESTEROL 69 > OR = 50 mg/dL [facility] TRIGLYCERIDES 98 <150 mg/dL [facility] LDL-CHOLESTEROL 128(H) mg/dL (calc) [facility] Comment: Reference range: <100 Desirable range <100 mg/dL for primary prevention; <70 mg/dL for patients with CHD or diabetic patients with > or = 2 CHD risk factors. LDL-C is now calculated using the Vamshi-Forest calculation, which is a validated novel method providing better accuracy than the Friedewald equation in the estimation of LDL-C. Vamshi GIRALDO et al. MISHA. 2013;310(19): 1041-5419 (http://education.Offerboxx.OutboundEngine/faq/BJB635) CHOL/HDLC RATIO 3.1 <5.0 (calc) [facility] NON HDL CHOLESTEROL 148(H) <130 mg/dL (calc) [facility] Comment: For patients with diabetes plus 1 major ASCVD risk factor, treating to a non-HDL-C goal of <100 mg/dL (LDL-C of <70 mg/dL) is considered a therapeutic option. Blood BLOOD SPECIMEN / Unknown 02/05/2025 9:50 AM CDT 02/05/2025 9:51 AM CDT Emily Mccullough DO CHEMISTRY Final Resul t [facility] [address] [place] [address], [facility] [address] [place] [address] * (ABNORMAL) XR DXA BONE DENSITY 2 [...] to assess therapeutic efficacy. Sara Fenton PA-C [facility] 01/30/2024 Narrative 01/30/2024 1:37 PM CDT For Patients: Results are automatically released to your [facility] ([facility]) account once available, in compliance with federal regulations. This means that you may see your results before your provider has had a chance to review them. Please allow 2-3 business days for your provider to comment on the results. XR DXA Bone Mineral Density (BMD) EXAM LOCATION: [address] [address] PATIENT NAME: Jermain Velazco DATE OF : 1955 EXAM DATE: 01/24/2024 [...] two scanners are made by the same swage tender. PROCEDURE: Dual-energy x-ray absorptiometry performed with routine [...] Z-Score: - 0.9 Change from prior in 2019: Decrease 10.6%. Right femoral neck BMD: 0.752 [...] 20.7%. 10-year probability of hip fracture: 4.9%. us Emily Mccullough DO DEXA Final Resul t * COLONOSCOPY (07/13/2021 9:19 AM CDT) 07/13/2021 9:19 AM CDT Narrative Transcriptions Vamshi Quesada MD - 07/13/2021 10:14 AM CDT Patient Name: Jermain Velazco Procedure Date: 07/13/2021 Gender: Female Date of : 1955 Admit Type: Outpatient Procedure: Colonoscopy Proceduralist: Vamshi Quesada MD , Jasmin Ku (Nurse) Referring [...] adequate candidate for conscious sedation. The [id number] was passed through the anus and advanced [...] 9:19 AM Procedure Code(s): --- Professional --- 75451, Colonoscopy, flexible; with biopsy, single or multiple Diagnosis Code(s): --- Professional --- Z12.11, Encounter for screening formalignant neoplasm of colon K63.5, Polyp of colon K57.30, Diverticulosis of large intestine without perforation or abscess withoutbleeding CPT copyright 2020 [employer]. All rights reserved. The codes documented in this report are preliminary and upon corporate giving manager reviewmay be revised to meet current compliance requirements. Scope In: 9:57:15 AM Scope Withdrawal Time 0 hours 8 minutes 18 seconds Scope Out: 10:10:12 AM us Vamshi Quesada MD PROCEDURE ORD Final Res ult * ANTI HCV (12/03/2018 11:37 AM IMAGING AIDE) HEPATITIS C ANTIBODY Non-React dede Non-React dede 12/03/2018 7:19 PM IMAGING AIDE [facility] Comment:Antibodies to HCV no t detected; does not exclude the possibility of exposure to HCV. Blood BLOOD SPECIMEN / Unknown Venipuncture / Unknown 12/03/2018 11:37 AM IMAGING AIDE 12/03/2018 11:37 AM IMAGING AIDE us Emily Mccullough DO SEND OUTS Final Resul t [facility] [address] [place] [address], from Last 3 Months or Most Recently Relevant to Health Maintenance Insurance [facility] [employer] MEDICARE PART A HB ONLY * Guarantor: JERMAIN VELAZCO Account Type Relation to Patient Date of Phone Billing Address [employer] [address] [place] [address] [facility] Care Teams Photovoltaic Panel Installer Relationship Specialty Start [place] [id number] [place] [address] PCP - General Family Practice 12/03/18
[2025-06-10 07:25] VITALS: BP 175/90; PULSE 76; RESP 18; TEMP 36.6; O2SAT 97; BMI 33.5
--- NOTE | 2025-06-10 08:22 | ED.GENADULT ---
HPI - General Adult General Chief complaint: GI Bleed Stated complaint: rectal bleeding Time Seen by Provider: 06/10/25 08:22 History of Present Illness HPI narrative: last had blood on outside of bm. during weekend blood came out everytime had bm. went to UC yesterday and had suppository . today passed gas and had some blood with that. pt on blood thinner and concerned it might be something more than hemrhoid. 69 year old woman presenting to the ER with concern of bleeding during bowel movements. Is not feeling any abdominal pain. No lightheadedness. No chest pain or shortness of breath. Seen yesterday in urgent care were had a Preparation-H type suppository placed. Today had some more blood with passage of flatus. Underlying history of Eliquis taken for history of DVT and pulmonary emboli. No hemorrhoids she reports were visualized during urgent care exam. Anoscopy was not done. She believes that her last colonoscopy in 2020 was ?fine?; does not note history of diverticular disease. She has not noting large clots of blood but it is more than just blood staining. Related Data Home Medications ?Medication ?Instructions ?Recorded ?Confirmed atorvastatin 20 mg tablet 20 mg PO QPM 01/02/25 06/10/25 loratadine 10 mg tablet 10 mg PO DAILY PRN 01/02/25 06/10/25 Pepcid AC 06/10/25 iron 06/10/25 Previous Rx's ?Medication ?Instructions ?Recorded apixaban 5 mg tablet (Eliquis) 10 mg (2 x 5 mg) PO BID #60 tabs 01/03/25 Allergies Allergy/AdvReac Type Severity Reaction Status Date / Time Penicillins Allergy Verified 01/02/25 10:44 Review of Systems Status of ROS: Reports: 6 or more systems reviewed and unremarkable except as noted in History and below [facility] Medical History CKD stage 3b, GFR 30-44 ml/min ?N18.32 - Chronic kidney disease, stage 3b (ICD-10) Ulcerative proctitis ?K51.20 - Ulcerative (chronic) proctitis without complications (ICD-10) Colon polyp ?K63.5 - Polyp of colon (ICD-10) Osteopenia ?M85.80 - Other specified disorders of bone density and structure, unspecified site (ICD-10) Hyperlipidemia ?E78.5 - Hyperlipidemia, unspecified (ICD-10) Essential hypertension ?I10 - Essential (primary) hypertension (ICD-10) Surgical History Hx of colonoscopy ?Z98.890 - Other specified postprocedural states (ICD-10) Social History Narrative: Lives with her 98yo mother in [place]. Brother Ramiro/STARR Bolanos would be MDM if needed. Nonsmoker, rare social ETOH. Full Code. What is your current living situation?: I presently have a place to live Problems where you live: no known problems Problems where you live details: N/A In the past 12 months, utilities in danger of being shut off: no In past 12 months, lack of transportation kept you from medical appts, meetings, work, or getting things needed for daily living: no In the past 12 mos, have been you worried that your food would run out before you had money to buy more?: never true In the past 12 mos, the food you bought just didn't last and you didn't have money to buy more?: never true Highest level of school completed/degree received: high school graduate Smoking Status: Never smoker Do you use any of these nicotine containing products: None Second hand tobacco smoke exposure: No How often do you have a drink containing alcohol: monthly or less How often do you have six or more drinks on one occasion: Never AUDIT-C Alcohol total score: 1 Non-prescribed substance use: denies use Caffeine: Yes How often does anyone, including family, friends and others, physically hurt you: never How often does anyone, including family, friends and others, insult or talk down to you: never How often does anyone, including family, friends and others, threaten you with harm: never How often does anyone, including family, friends and others, scream or curse at you: never service: No Exam Narrative: Exam Narrative: Pleasant. NAD. Skin is warm dry. She is breathing easily. Lungs appear to be clear. Heart in regular rate and rhythm. Abdomen is soft and nontender. Return for chaperoned anoscopy. There are some residual hemorrhoidal skin tags. Nothing inflamed. Inserting anoscopy is well tolerated. I do not appreciate discrete inflamed hemorrhoidal tissue or fissure. As I leave the anoscope though in at the distal aspect of the anoscope it starts to stipple some blood. Const: Vital Signs, click to edit/add: Vital Signs - 24 hr 06/10/25 07:25 Temperature 97.8 F Pulse Rate [Pulse Oximeter] 76 Respiratory Rate 18 Blood Pressure [Ri ght Upper Arm] 175/90 H Pulse Oximetry 97 Oxygen Delivery Me thod Room Air Documenting provider has reviewed patient's vital signs: yes Course Vital Signs Vital signs: Initial Vital Signs Temperature 97.8 F 06/10/25 07:25 Temperature Source Temporal Artery Scan 06/10/25 07:25 Pulse Rate 76 06/10/25 07:25 Respiratory Rate 18 06/10/25 07:25 Blood Pressure 175/90 H 06/10/25 07:25 Blood Pressure Mean 118 H 06/10/25 07:25 Blood Pressure Position Sitting 06/10/25 07:25 Pulse Oximetry 97 06/10/25 07:25 Oxygen Delivery Method Room Air 06/10/25 07:25 Vital Signs Temperature 97.8 F 06/10/25 07:25 Pulse Rate 76 06/10/25 07:25 Respiratory Rate 18 06/10/25 07:25 Blood Pressure 175/90 H 06/10/25 07:25 Pulse Oximetry 97 06/10/25 07:25 Oxygen Delivery Method Room Air 06/10/25 07:25 Temperature 97.8 F 06/10/25 07:25 Pulse Rate 76 06/10/25 07:25 Respiratory Rate 18 06/10/25 07:25 Blood Pressure 175/90 H 06/10/25 07:25 Pulse Oximetry 97 06/10/25 07:25 Oxygen Delivery Method Room Air 06/10/25 07:25 Medical Decision Making MDM Narrative Medical decision making narrative: Did review records. Will check hemoglobin level as well as other indication of infection, elevated white count which might indicate diverticular disease though I doubt this particularly given lack of pain/reassuring abdomen. Been no fever. Sounds to be rectal passage bleeding/hemorrhoidal. She does not have pain typical of external hemorrhoids or anal fissure. Does have a history of ulcerative proctitis. Considering relatively painless anoscopy exam, I'm not convinced this is typical proctitis. Benefit from steroid? Labs returned with a hemoglobin of 14.9 does notably better than december of this year last measured at 10.2 this facility Otherwise generally reassuring. Negative CRP. Nothing further in the emergency department. I think would monitor closely a patient at this point. See patient discharge plan for further discussion I would focus on keeping your stools soft. At this point I would continue your anticoagulation. Stay well-hydrated. Start MiraLax or Benefiber dosing up to 3 times in a day each diluted in at least 8 oz of liquid. Contact primary care provider to recheck labs later this week or early next week and possibly to arrange for colonoscopy. Be seen sooner for marked increase in bleeding, increasing abdominal pain, associated fever. Medical Records Medical records reviewed: Yes I reviewed the patient's medical records Lab Data Lab results reviewed: Yes I reviewed the patient's lab results Labs: Lab Results 06/10/25 Range/Units 08:39 WBC 8.09 (4.50-11.00) K/uL RBC 5.41 H (4.00-5.20) m/uL Hgb 14.9 (12.0-16.0) gm/dL Hct 46.3 (33.0-51.0) % MCV 86 (80-100) fL MCH 28 (26-34) pg MCHC 32 (32-36) gm/dL RDW Coeff of Marc 13.7 (11.5-15.5) % Plt Count 54 L (140-440) K/uL Neut % (Auto) 80.6 H (42.0-72.0) % Lymph % (Auto) 7.3 L (20-44) % [place] % (Auto) 5.8 (0.0-11.0) % Eos % (Auto) 5.4 (0.0-7.0) % Baso % (Auto) 0.5 (0.0-3.0) % Neut # (Auto) 6.50 (1.7-7.0) K/uL Lymph # (Auto) 0.60 L (0.90-2.90) K/uL [place] # (Auto) 0.50 (0.00-0.90) K/UL Eos # (Auto) 0.44 (0.00-0.50) K/uL Baso # (Auto) 0.04 (0.00-0.30) K/uL Abs Immat Gran (auto) 0.03 (0.00-0.30) K/uL Imm/Tot Granulo (auto) 0.4 % Sodium 139 (135-149) mmol/L Potassium 4.4 (3.6-5.1) mmol/L Chloride 110 (96-114) mmol/L Carbon Dioxide 25 (20-32) mmol/L Anion Gap 4 L (7-15) mEq/L BUN 13 (7-30) mg/dL Creatinine 1.2 (0.5-1.5) mg/dL Estimated Creat Clear 47.73 Estimated GFR 48 ml/min Glucose 109 (60-115) mg/dL Calcium 9.2 (8.4-10.6) mg/dL C-Reactive Protein < 0.5 L (0.5-1.0) mg/dL Discharge Plan Discharge Clinical Impression: Lower GI bleed Patient Disposition: Home w/ Parent or Adult Condition: Stable Additional Instructions: I would focus on keeping your stools soft. At this point I would continue your anticoagulation. Stay well-hydrated. Start MiraLax or Benefiber dosing up to 3 times in a day each diluted in at least 8 oz of liquid. Contact primary care provider to recheck labs later this week or early next week and possibly to arrange for colonoscopy. Be seen sooner for marked increase in bleeding, increasing abdominal pain, associated fever. Prescriptions: No Action atorvastatin 20 mg tablet 20 mg PO QPM loratadine 10 mg tablet 10 mg PO DAILY PRN Eliquis 5 mg Tablet 10 mg PO BID Qty: 60 0RF Rx Instructions: Two tabs twice a day thru Monday the . Then one tab twice a day until you discuss with MD Jareth NOONAN iron Follow Up/Referrals: Provider,Not a Local [Primary Care Provider, Family Practice] Stand Alone Forms: [employer] Info Instructions
[2025-06-10 08:59] LABS: Chloride* 110 mmol/L (96-114); Potassium* 4.4 mmol/L (3.6-5.1); Sodium* 139 mmol/L (135-149)
[2025-06-10 09:02] LABS: Anion Gap 4 mEq/L (7-15); Blood Urea Nitrogen* 13 mg/dL (7-30); Calcium* 9.2 mg/dL (8.4-10.6); Carbon Dioxide* 25 mmol/L (20-32); Creatinine* 1.2 mg/dL (0.5-1.5); Est. Creatinine Clearance* 47.73; Estimated Glomerular Filt Rate 48 ml/min; Glucose* 109 mg/dL (60-115)
[2025-06-10 09:07] LABS: Hematocrit 46.3 % (33.0-51.0); Hemoglobin* 14.9 gm/dL (12.0-16.0); Immature Granulocytes Abs Auto 0.03 K/uL (0.00-0.30); Immature Granulocytes Pct Auto 0.4 %; Mean Corpuscular HGB Conc 32 gm/dL (32-36); Mean Corpuscular Hemoglobin 28 pg (26-34); Mean Corpuscular Volume 86 fL (80-100); RDW Coefficient of Variation % 13.7 % (11.5-15.5); Red Blood Count 5.41 m/uL (4.00-5.20); White Blood Count* 8.09 K/uL (4.50-11.00)
[2025-06-10 09:10] LABS: Lymphocytes Absolute Auto 0.60 K/uL (0.90-2.90)
[2025-06-10 09:11] LABS: Slide Review Reflex No
== END 2025-06-10 10:40 | disposition home or self-care (01) ==
PROVIDERS: Emergency Provider Family Medicine
DX: K92.2 Gastrointestinal hemorrhage, unspecified (principal)
CPT/HCPCS: 46600; 36415; 80048; 85025; 86140; 99284

== ENCOUNTER 2025-07-05 10:39 | Emergency (ER) | payer MEDICARE, SELFPAY ==
--- OUTSIDE RECORDS SUMMARY | 2025-07-05 10:42 | XMS_ITS | Clinical Summary ---
Author Organization [facility] Address [address] [place] [address] Care Team Providers Care Chute Builder Name Role Phone WyattEmily ruiz Primary Care Provider [phone] Allergies Active Allergy Reactions Criticality Noted Date Comments Penicillins 12/08/2010 Medications loratadine (CLARITIN) 10 mg tabletIndicatio ns:Seasonal allergic rhinitis due to pollen TAKE ONE TABLET BY MOUTH ONE TIME DAILY 30 tablet 11/29/19 18 Active medication order composer Calcium and Vit D once daily Active atorvastatin 20 mg tabletIndicatio ns:Dyslipidemia Take [...] times daily. 12 Suppository 06/09/20 25 Active Eliquis 5 mg tabletIndicatio ns:PE (pulmonary thromboembolism ) (HC) Take 1 Tablet (5 mg) by mouth two times daily. 100 Tablet 3 06/11/20 25 Active polyethylene glycol-electrol yte (GOLYTELY) 236-22.74-6.74 -5.86 gram suspensionIndic ations:Encounte r for screening colonoscopy Drink 2 liters (half the bottle) the day before colonoscopy and 2 liters (remaining prep) 6 hours prior to colonoscopy appointment. 4000 mL 06/17/20 25 Active Eliquis 5 mg tabletIndicatio ns:Acute deep vein thrombosis (DVT) of distal vein of left lower extremity (HC),PE (pulmonary thromboembolism ) (HC) Take 1 Tablet (5 mg) by mouth two times daily. 60 Tablet 3 01/11/20 25 025 Discontin ued(Reord er (E-cancel not [...] Right superior shoulder, BCC: ED&C 04/14/2023 by NESTOR Nava. 05/2020 - LEFT JAIN, Basal cell carcinoma, nodular type: MOHS 07/21/2020 Kitchen 05/2020 - LEFT FOREARM, Basal cell carcinoma, [...] Encounters Date Type Department Care Team Description 06/25/2025 Telephone [facility] [address] [place] [address] Emily Mccullough, Results 06/23/2025 10:15 AM CDT Orders Only [facility] [address] [place] [address] Lab, Farm Lab 06/23/2025 Travel 06/17/2025 Telephone [facility] [address] [place] [address] Emily Mccullough, Questions 06/12/[address] [facility] [address] [place] [address] Vamshi Quesada MD Screening 06/11/2025 12:50 PM CDT Office Visit [facility] [address] [place] [address] Emily Mccullough DO Hospital F/U 06/11/2025 Travel 06/11/2025 Orders Only [facility] [address] [place] [address] Emily Mccullough DO <No scans attached> 06/10/2025 Orders Only [facility] Scanner 1 scan: (1-Ord) [facility], MULTIPLE LABS, 06/10/2025 06/10/2025 Telephone [facility] [address] [place] [address] Emily Mccullough DO Error-please disregard (error/) 06/09/2025 8:15 AM CDT Office Visit [facility] [address] [phone] Shelia Titus, EUGENE Hemorrhoids 06/09/2025 Refill [facility] [address] [place] [address] Emily Mccullough DO Refill Request (Eliquis) 06/09/2025 Travel 06/09/2025 Nurse Triage [facility] [address] [place] [address] Emily Mccullough DO Bleeding 05/14/2025 1:00 PM CDT Office Visit [facility] [place] [address] [place] [phone] Cristiane Piper MBBS Follow Up (3 month follow up) 05/14/2025 Travel 05/14/2025 Telephone [facility] [address] [place] [address] Emily Mccullough, Results 05/13/2025 Orders Only [facility] [address] [facility] [place] [address] Emily Mccullough, DO <No scans attached> 05/12/2025 10:00 AM CDT Orders Only [facility] [address] [place] [address] Lab, Farm Lab 05/12/2025 Travel 05/06/2025 9:30 AM CDT Nutrition/Dietici an [facility] [address] [place] [address] 05/06/2025 Travel from Last 3 Months Immunizations Immunization Administration Dates Next Due COVID-19 vaccine (Funtactix 30mcg/0.3mL) PF, MDV 09/15/2021,01/28/2021,01/07/2021 Influenza RIV4 (Age 18+ Year s) PRESERV FREE 07/25/2019 Influenza Virus, Unspecified 06/16/2018,07/15/20 17 Influenza, High-dose Inactivated 07/18/2024 Influenza, High-dose Quadriv alent Inactivated 07/22/2023,08/08/2022,06/30/2021,2019 Influenza, IIV4 07/30/2016 Pneumococcal Poly,23-Valent (Pneumovax) 12/06/2019 Pneumococcal conj 13-Valent (Prevnar 13) 12/03/2018 Td (Age >=7 Years) 04/22/2005,04/04/2005 Tdap 01/29/2024,05/08/2013 Zoster (Zostavax-ZVL, live) 12/05/2015 Family History Medical History Relation Name Comments Heart Disease Father [place] Cancer-breast Mother Hyperlipidemia Mother Postmenopausal breast cancer Mother Genetic Other Family history of:~~Breast Cancer: No~~Ovarian Cancer: No~~Colon CA: No~~Prostate/Testicular CA: No~~Osteoporosis: No~~Early CAD: Father GA at 59. ~~DM: Aunt ~~Thyroid Dz: No Cancer-ovarian No Family History Relation Name Status Comments Father Mother Alive Other Social History Tobacco Use Types Packs/Day Years Used Date Smoking Tobacco: Never Passive Smoke Exposure: Never Smokeless Tobacco: Never Tobacco Cessation:Counseling Given: Not Answered Alcohol Use Standard Drinks/Week Comments No 0 [...] on file Legal Sex Female 5:26 AM CHIEF OPHTHALMIC TECHNICIAN Gender Identity Not on file Sexual Orientation Not on file Obstetrics History Last Filed Vital Signs Vital Sign Reading Time Taken Comments Blood Pressure 136/84 06/11/2025 12:47 PM CDT Pulse 84 06/11/2025 12:47 PM CDT Temperature 36.3 C (97.4 F) 06/09/2025 8:21 AM CDT Respiratory Rate 16 06/09/2025 8:21 AM CDT Oxygen Saturation 99% 06/11/2025 12: 47 PM CDT Inhaled Oxygen Concentration - - Weight 71.1 kg (156 lb 12.8 oz) 025 12:47 PM CDT Height 145.7 cm (4' 9.38) 02/05/2025 9:16 AM CD T Body Mass Index 33.48 02/05/2025 9:16 AM CDT Plan of Treatment Upcoming Encounters Date Type Department Care Team (Late st Contact Info) Description 07/11/2025 9:15 AM CDT Office Visit [facility] [address] [place] [address] Vamshi Quesada MD [address] [place] [address] 07/29/2025 8:30 AM CDT Nutrition/Dietici an [facility] [address] [place] [address] [place] [address] Health Maintenance Due Date Last Done Comments [...] Name Priority Date/Time Associated Diagnosis Comments HEMOGLOBIN Routine 06/23/2025 10:21 AM CDT Rectal bleeding HEMOGLOBIN Routine 06/11/2025 1:12 PM CDT Dark stools SCAN-LABORATORY REPORT 06/10/2025 12:00 AM CDT HEMOGLOBIN A1C Routine 05/12/2025 9:56 AM CDT [...] cancer ANTI HCV Routine 12/03/2018 11:37 AM CHIEF OPHTHALMIC TECHNICIAN Need for hepatitis C screening test from Last 3 Months or Most Recently Relevant to Health Maintenance Results * HEMOGLOBIN (06/23/2025 10:21 AM CDT) Only the most recent of2 resultswithin the time period is included. HEMOGLOBIN 13.6 11.7 - 15.5 g/dL 06/24/2025 5:55 AM CDT [facility] MCV 86.2 80.0 - 100.0 fL 06/24/2025 5:55 AM CDT [facility] Blood BLOOD SPECIMEN / Unknown [facility] / Unknown 06/23/2025 10:21 AM CDT 06/23/2025 10:22 AM CDT Emily Mccullough DO HEMATOLOGY Final Resul t [facility] [address] [phone], * SCAN-LABORATORY REPORT (06/10/2025 12:00 AM CDT) us Scanner OTHER Final Result * (ABNORMAL) HEMOGLOBIN A1C (05/12/2025 9:56 AM CDT) HEMOGLOBIN A1C 5.8(H) <5.7 % [facility] Comment: For someone without known diabetes, a [...] Emily Mccullough DO CHEMISTRY Final Resul t [facility] [address] [place] [address], [facility] [address] [place] [address] * (ABNORMAL) CBC AND DIFFERENTIAL (05/12/2025 9:56 AM CDT) [facility] WHITE BLOOD CELL COUNT 6.5 3.8 - 10.8 Thousand/u L [facility] RED BLOOD CELL COUNT 5.75(H) 3.80 - 5.10 Million/uL [facility] HEMOGLOBIN 15.5 11.7 - 15.5 g/dL [facility] HEMATOCRIT 48.9(H) 35.0 - 45.0 % [facility] MCV 85.0 80.0 - 100.0 fL [facility] MCH 27.0 27.0 - 33.0 pg [facility] MCHC 31.7(L) 32.0 - 36.0 g/dL [facility] Comment: For adults, a [...] 9:56 AM CDT 05/12/2025 9:57 AM CDT Russnestorantwonalvin Hope Veronique MBBS HEMATOLOGY Final Result [facility] [address] [place] [address], [facility] [address] [place] [address] * XR MAMMO LEE BILAT SCREEN (02/12/2025 [...] care provider. XR MAMMO LEE BILAT SCREEN [[id number]] CLINICAL HISTORY: This is an asymptomatic 69 y.o. patient. INDICATION FOR EXAM: Mammogram Screening. TECHNIQUE: CC and MLO views were obtained. This study was evaluated with the assistance of Computer-Aided Detection. Breast Tomosynthesis was used in interpretation. COMPARISON FILM: Yes 07/07/23 [facility] 12/14/21 [facility] FINDINGS: The breasts are heterogeneously dense, which may obscure small masses. There are no dominant masses, suspicious micro calcifications or areas of architectural distortion. Emily Mccullough DO MAMMO Final Resul t * (ABNORMAL) [...] factors. LDL-C is now calculated using the Merissa calculation, which is a validated novel method providing better accuracy than the Friedewald equation in the estimation of LDL-C. Vamshi SS et al. MISHA. 2013;310(19): 0376-7525 (http://education.[employer]/faq/QDH200) CHOL/HDLC RATIO 3.1 <5.0 (calc) [facility] [...] Emily Mccullough DO CHEMISTRY Final Resul t [facility] [address] [place] [address], [facility] [address] [place] [address] * (ABNORMAL) XR DXA BONE DENSITY 2 [...] to assess therapeutic efficacy. Sara Fenton PA-C [facility] 01/30/2024 Narrative 01/30/2024 1:37 PM CDT For Patients: Results are automatically released to your [facility] account once available, in compliance with federal regulations. This means that you may see your results before your provider has had a chance to review them. Please allow 2-3 business days for your provider to comment on the results. XR DXA Bone Mineral Density (BMD) EXAM LOCATION: [facility] [address] [facility] [address] PATIENT NAME: Jermain Velazco DATE OF : [...] two scanners are made by the same certified legal secretary specialist. PROCEDURE: Dual-energy x-ray absorptiometry performed with routine [...] adequate candidate for conscious sedation. The [id number] was passed through the anus and advanced [...] 9:19 AM Procedure Code(s): --- Professional --- 17437, Colonoscopy, flexible; with biopsy, single or multiple Diagnosis Code(s): --- Professional --- Z12.11, Encounter for screening formalignant neoplasm of colon K63.5, Polyp of colon K57.30, Diverticulosis of large intestine without perforation or abscess withoutbleeding CPT copyright 2020 [employer]. All rights reserved. The codes documented in this report are preliminary and upon boiler reliner reviewmay be revised to meet current compliance requirements. Scope In: 9:57:15 AM Scope Withdrawal Time 0 hours 8 minutes 18 seconds Scope Out: 10:10:12 AM us Vamshi Quesada MD PROCEDURE ORD Final Res ult * ANTI HCV (12/03/2018 11:37 AM CHIEF OPHTHALMIC TECHNICIAN) HEPATITIS C ANTIBODY Non-React dede Non-React dede 12/03/2018 7:19 PM CHIEF OPHTHALMIC TECHNICIAN [facility] Comment:Antibodies to HCV no t detected; does not exclude the possibility of exposure to HCV. Blood BLOOD SPECIMEN / Unknown Venipuncture / Unknown 12/03/2018 11:37 AM CHIEF OPHTHALMIC TECHNICIAN 12/03/2018 11:37 AM CHIEF OPHTHALMIC TECHNICIAN us Emily Armijoe Sadia DO SEND OUTS Final Resul t [facility] [address] [place] [address], [place] from Last 3 Months or Most Recently Relevant to Health Maintenance Insurance [facility] MEDICARE PART A HB ONLY * Guarantor: JERMAIN VELAZCO Account Type Relation to Patient Date of Phone Billing Address [employer] [address] [place] [address] [facility] Care Teams Chute Builder Relationship Specialty Start [place] [address] [place] [address] PCP - General Family Practice 12/03/18
[2025-07-05 10:51] VITALS: BP 184/92; PULSE 97; RESP 18; TEMP 36.8; O2SAT 96; BMI 32.5
[2025-07-05 11:15] VITALS: BP 145/85; BP 158/98; BP 169/98; PULSE 103; PULSE 107; PULSE 89
[2025-07-05 11:43] LABS: Hematocrit* 39.4 % (33.0-51.0); Hemoglobin* 12.8 gm/dL (12.0-16.0); Immature Granulocytes Pct Auto 1.1 %; Mean Corpuscular HGB Conc 33 gm/dL (32-36); Mean Corpuscular Hemoglobin 28 pg (26-34); Mean Corpuscular Volume 86 fL (80-100); RDW Coefficient of Variation % 13.8 % (11.5-15.5); Red Blood Count* 4.57 m/uL (4.00-5.20); White Blood Count* 13.33 K/uL (4.50-11.00)
[2025-07-05 11:52] LABS: Albumin* 3.5 g/dL (3.3-5.0); Chloride* 104 mmol/L (96-114)
[2025-07-05 11:53] LABS: Sodium* 138 mmol/L (135-149)
[2025-07-05 11:55] LABS: Alanine Aminotransferase* 49 U/L (4-35); Anion Gap 7 mEq/L (7-15); Aspartate Amino Transferase* 46 U/L (12-35); Blood Urea Nitrogen* 10 mg/dL (7-30); Calcium* 8.6 mg/dL (8.4-10.6); Carbon Dioxide* 27 mmol/L (20-32); Creatinine* 1.1 mg/dL (0.5-1.5); Est. Creatinine Clearance* 49.65; Estimated Glomerular Filt Rate 53 ml/min; Glucose* 123 mg/dL (60-115); Total Protein* 6.1 g/dL (6.0-8.3)
[2025-07-05 11:56] LABS: Alkaline Phosphatase* 150 U/L (40-150); Bilirubin Direct* 0.3 mg/dL (0.0-0.5); Bilirubin Total* 0.7 mg/dL (0.1-1.5); Potassium* 2.8 mmol/L (3.6-5.1)
[2025-07-05 11:59] LABS: Immature Granulocytes Abs Auto 0.10 K/uL (0.00-0.30)
[2025-07-05 12:00] LABS: Lymphocytes Absolute Auto 1.00 K/uL (0.90-2.90); Slide Review Reflex Yes
[2025-07-05 12:01] LABS: Slide Review Acceptable Review (Acceptable)
--- NOTE | 2025-07-05 12:01 | PC.NURSE ---
lab called with critical potassium 2.8 and platelets 32
[2025-07-05] MEDS: POTASSIUM CHLORIDE 10 MEQ CAPSULE ER 40 MEQ PO (12:24)
[2025-07-05] MEDS: 0.9 % SODIUM CHLORIDE 500 ML 500 ML 1000 ML IV (12:24)
[2025-07-05 12:33] LABS: Hematocrit* 38.0 % (33.0-51.0); Hemoglobin* 12.3 gm/dL (12.0-16.0); Immature Granulocytes Pct Auto 1.2 %; Mean Corpuscular HGB Conc 32 gm/dL (32-36); Mean Corpuscular Hemoglobin 28 pg (26-34); Mean Corpuscular Volume 86 fL (80-100); RDW Coefficient of Variation % 13.8 % (11.5-15.5); Red Blood Count* 4.42 m/uL (4.00-5.20); White Blood Count* 13.79 K/uL (4.50-11.00)
[2025-07-05 12:34] LABS: Immature Granulocytes Abs Auto 0.20 K/uL (0.00-0.30)
[2025-07-05 12:35] LABS: Lymphocytes Absolute Auto 1.00 K/uL (0.90-2.90); Slide Review Reflex No
--- NOTE | 2025-07-05 12:35 | PC.NURSE ---
critical platelets of 34, reported to Dr Viveros
--- NOTE | 2025-07-05 12:39 | ED.GENADULT ---
HPI - General Adult General Chief complaint: GI Bleed Stated complaint: Bleeding through rectum, weak Time Seen by Provider: 07/05/25 11:04 Source: patient Mode of arrival: ambulatory Limitations: no limitations History of Present Illness HPI narrative: 70-year-old female presenting today with feelings of lightheadedness and shakiness. Patient states that she has been having an ongoing GI bleed for the last month. She has multiple bowel movements per day with maroon blood around the stools. She states that she does have a colonoscopy scheduled for this coming Monday, that will be in 6 days. 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 She states that this morning she woke up and she felt very shaky lightheaded, she did not fall, she does not describe the room spinning around her. She states that the symptoms are more pronounced when she stands up. She states that she is feeling little bit better now that she is here. She denies chest pain or shortness of breath. No abdominal pain. No increase in her rectal bleeding. She states that she gets her hemoglobins checked regularly by her primary care provider. States that her last 1 was 13 point something, last week. Patient is supposed to stop taking her Eliquis this coming Monday, 4 days from today. Related Data Home Medications ?Medication ?Instructions ?Recorded ?Confirmed atorvastatin 20 mg tablet 20 mg PO QPM 01/02/25 07/05/25 Pepcid AC 06/10/25 iron 06/10/25 Previous Rx's ?Medication ?Instructions ?Recorded apixaban 5 mg tablet (Eliquis) 10 mg (2 x 5 mg) PO BID #60 tabs 01/03/25 Allergies Allergy/AdvReac Type Severity Reaction Status Date / Time Penicillins Allergy Verified 07/05/25 10:57 Review of Systems Status of ROS: Reports: 10 or more systems reviewed and unremarkable except as noted in History and below [facility] Medical History CKD stage 3b, GFR 30-44 ml/min ?N18.32 - Chronic kidney disease, stage 3b (ICD-10) Ulcerative proctitis ?K51.20 - Ulcerative (chronic) proctitis without complications (ICD-10) Colon polyp ?K63.5 - Polyp of colon (ICD-10) Osteopenia ?M85.80 - Other specified disorders of bone density and structure, unspecified site (ICD-10) Hyperlipidemia ?E78.5 - Hyperlipidemia, unspecified (ICD-10) Essential hypertension ?I10 - Essential (primary) hypertension (ICD-10) Surgical History Hx of colonoscopy ?Z98.890 - Other specified postprocedural states (ICD-10) Social History Narrative: Lives with her 98yo mother in [place]. Brother Ramiro/STARR Bolanos would be MDM if needed. Nonsmoker, rare social ETOH. Full Code. What is your current living situation?: I presently have a place to live Problems where you live: no known problems Problems where you live details: N/A In the past 12 months, utilities in danger of being shut off: no In past 12 months, lack of transportation kept you from medical appts, meetings, work, or getting things needed for daily living: no In the past 12 mos, have been you worried that your food would run out before you had money to buy more?: never true In the past 12 mos, the food you bought just didn't last and you didn't have money to buy more?: never true Highest level of school completed/degree received: high school graduate Smoking Status: Never smoker Do you use any of these nicotine containing products: None Second hand tobacco smoke exposure: No How often do you have a drink containing alcohol: monthly or less How often do you have six or more drinks on one occasion: Never AUDIT-C Alcohol total score: 1 Non-prescribed substance use: denies use Caffeine: Yes How often does anyone, including family, friends and others, physically hurt you: never How often does anyone, including family, friends and others, insult or talk down to you: never How often does anyone, including family, friends and others, threaten you with harm: never How often does anyone, including family, friends and others, scream or curse at you: never service: No Exam Narrative: Exam Narrative: Well-nourished well-developed patient in no acute distress. Alert and oriented. Answers questions appropriately. Mood and affect are appropriate. Thoughts are goal oriented and rational. No tangential or magical thinking noted. Patient speaks in full sentences without needing to catch her breath. HEENT: Normocephalic atraumatic. Pupils are equally round reactive to light. Extraocular muscles are intact. Conjunctivae are moist without any icterus noted. Moist mucous membranes. Cardiovascular: Heart is regular rate and rhythm S1 and S2 are present without any murmurs. Patient does become tachycardic when she sits up with her pulse going from 89-107 between lying and standing. Lungs: Clear to auscultation bilaterally no wheezes rhonchi or rales are appreciated. Abdomen: Soft and nontender nondistended with normal bowel sounds. Skin: Well perfused without any obvious rashes. Const: Vital Signs, click to edit/add: Vital Signs - 24 hr 07/05/25 10:51 07/05/25 11:15 07/05/25 13:42 Temperature 98.2 F 97.9 F Pulse Rate [Right Pulse Oximeter] 97 92 Pulse Rate [orthos tatic lying Right Pulse Oximeter] 89 Pulse Rate [orthos tatic sitting Righ t] 103 H Pulse Rate [orthos tatic standing Rig ht] 107 H Respiratory Rate 18 18 Blood Pressure [Ri ght Upper Arm] 184/92 H 151/95 H Blood Pressure [or thostatic lying Ri ght Arm] 145/85 H Blood Pressure [or thostatic sitting Right Arm] 169/98 H Blood Pressure [or thostatic standing Right Arm] 158/98 H Pulse Oximetry 96 96 Oxygen Delivery Me thod Room Air Room Air 07/05/25 16:50 Temperature 98.3 F Pulse Rate [Right Pulse Oximeter] 93 Pulse Rate [orthos tatic lying Right Pulse Oximeter] Pulse Rate [orthos tatic sitting Righ t] Pulse Rate [orthos tatic standing Rig ht] Respiratory Rate 18 Blood Pressure [Ri ght Upper Arm] 136/84 Blood Pressure [or thostatic lying Ri ght Arm] Blood Pressure [or thostatic sitting Right Arm] Blood Pressure [or thostatic standing Right Arm] Pulse Oximetry 93 Oxygen Delivery Me thod Room Air Course Course ED Course: Patient did have mild tachycardia with jump in her pulse from 89-107 from lying to standing. IV was established and she was started on 1 L of normal saline. CBC shows a hemoglobin of 12.8, white cell count slightly elevated [place] 13.[place] [address]. [place] [address]. Chemistries are unremarkable aside from a low potassium at 2.8. LFTs minimally elevated with an AST of 46 and ALT of 49. Normal troponin. Forty mEq of oral potassium given in the ED. Consulted with Dr. Walton recommends a DIC workup. Therefore we checked a D-dimer which was slightly elevated at 0.7, INR elevated 1.5, APTT normal at 30 and fibrinogen normal at 429. Consult with Dr. Chen with results who recommends patient be transferred to higher level of care given the thrombocytopenia and active bleeding. Discussed patient with at [facility], who accepts the patient for transfer. Patient remained hemodynamically stable and asymptomatic. Vital Signs Vital signs: Initial Vital Signs Temperature 98.2 F 07/05/25 10:51 Temperature Source Temporal Artery Scan 07/05/25 10:51 Pulse Rate 97 07/05/25 10:51 Pulse Rhythm Regular 07/05/25 10:51 Pulse Strength 3+ Normal 07/05/25 10:51 Respiratory Rate 18 07/05/25 10:51 Blood Pressure 184/92 H 07/05/25 10:51 Blood Pressure Mean 122 H 07/05/25 10:51 Blood Pressure Position Sitting 07/05/25 10:51 Pulse Oximetry 96 07/05/25 10:51 Oxygen Delivery Method Room Air 07/05/25 10:51 Vital Signs Temperature 98.2 F 07/05/25 10:51 Pulse Rate 97 07/05/25 10:51 Respiratory Rate 18 07/05/25 10:51 Blood Pressure 184/92 H 07/05/25 10:51 Pulse Oximetry 96 07/05/25 10:51 Oxygen Delivery Method Room Air 07/05/25 10:51 Temperature 98.3 F 07/05/25 16:50 Pulse Rate 93 07/05/25 16:50 Respiratory Rate 18 07/05/25 16:50 Blood Pressure 136/84 07/05/25 16:50 Pulse Oximetry 93 07/05/25 16:50 Oxygen Delivery Method Room Air 07/05/25 16:50 Medications Administered Medications: Discontinued Medications Generic Name Dose Route Start Last Admin Trade Name Freq PRN Reason Stop Dose Admin Sodium Chloride 500 mls @ 1,000 mls/hr 07/05/25 12:12 07/05/25 13:41 0.9 % Sodium Chloride 500 Ml IV 07/05/25 12:41 Infused .Q30M AISLINN Infusion Potassium Chloride 40 meq 07/05/25 12:11 07/05/25 12:24 Potassium Chloride 10 Meq Capsule Er PO 07/05/25 12:12 40 meq ONCE ONE Administration Medical Decision Making MDM Narrative Medical decision making narrative: 70-year-old female with rectal bleeding and thrombocytopenia. Patient will be transferred for further management. Lab Data Lab results reviewed: Yes I reviewed the patient's lab results Labs: Lab Results 07/05/25 07/05/25 07/05/25 Range/Units 11:18 11:22 12:20 WBC 13.33 H 13.79 H (4.50-11.00) K/uL RBC 4.57 4.42 (4.00-5.20) m/uL Hgb 12.8 12.3 (12.0-16.0) gm/dL Hct 39.4 38.0 (33.0-51.0) % MCV 86 86 (80-100) fL MCH 28 28 (26-34) pg MCHC 33 32 (32-36) gm/dL RDW Coeff of Marc 13.8 13.8 (11.5-15.5) % Plt Count 32 L* 34 L* (140-440) K/uL Neut % (Auto) 60.8 61.2 (42.0-72.0) % Lymph % (Auto) 7.2 L 7.4 L (20-44) % Hill % (Auto) 7.1 7.2 (0.0-11.0) % Eos % (Auto) 23.4 H 22.6 H (0.0-7.0) % Baso % (Auto) 0.4 0.4 (0.0-3.0) % Neut # (Auto) 8.10 H 8.40 H (1.7-7.0) K/uL Lymph # (Auto) 1.00 1.00 (0.90-2.90) K/uL Hill # (Auto) 0.90 1.00 H (0.00-0.90) K/UL Eos # (Auto) 3.10 H 3.10 H (0.00-0.50) K/uL Baso # (Auto) 0.10 0.10 (0.00-0.30) K/uL Abs Immat Gran (auto) 0.10 0.20 (0.00-0.30) K/uL Imm/Tot Granulo (auto) 1.1 1.2 % Diff Slide Review Acceptable Review (Acceptable) INR (0.91-1.10) APTT (23-33) Seconds Fibrinogen (200-450) mg/dL D-Dimer Quant (PE/DVT) (0.00-0.50) ug/ml Sodium 138 (135-149) mmol/L Potassium 2.8 L* (3.6-5.1) mmol/L Chloride 104 (96-114) mmol/L Carbon Dioxide 27 (20-32) mmol/L Anion Gap 7 (7-15) mEq/L BUN 10 (7-30) mg/dL Creatinine 1.1 (0.5-1.5) mg/dL Estimated Creat Clear 49.65 Estimated GFR 53 ml/min Glucose 123 H (60-115) mg/dL Calcium 8.6 (8.4-10.6) mg/dL Total Bilirubin 0.7 (0.1-1.5) mg/dL Direct Bilirubin 0.3 (0.0-0.5) mg/dL AST 46 H (12-35) U/L ALT 49 H (4-35) U/L Alkaline Phosphatase 150 (40-150) U/L Troponin I < 0.01 (0.01-0.04) ng/mL Total Protein 6.1 (6.0-8.3) g/dL Albumin 3.5 (3.3-5.0) g/dL 07/05/25 Range/Units 13:30 WBC (4.50-11.00) K/uL RBC (4.00-5.20) m/uL Hgb (12.0-16.0) gm/dL Hct (33.0-51.0) % MCV (80-100) fL MCH (26-34) pg MCHC (32-36) gm/dL RDW Coeff of Marc (11.5-15.5) % Plt Count (140-440) K/uL Neut % (Auto) (42.0-72.0) % Lymph % (Auto) (20-44) % Hill % (Auto) (0.0-11.0) % Eos % (Auto) (0.0-7.0) % Baso % (Auto) (0.0-3.0) % Neut # (Auto) (1.7-7.0) K/uL Lymph # (Auto) (0.90-2.90) K/uL Hill # (Auto) (0.00-0.90) K/UL Eos # (Auto) (0.00-0.50) K/uL Baso # (Auto) (0.00-0.30) K/uL Abs Immat Gran (auto) (0.00-0.30) K/uL Imm/Tot Granulo (auto) % Diff Slide Review (Acceptable) INR 1.55 H (0.91-1.10) APTT 30 (23-33) Seconds Fibrinogen 429 (200-450) mg/dL D-Dimer Quant (PE/DVT) 0.72 H (0.00-0.50) ug/ml Sodium (135-149) mmol/L Potassium (3.6-5.1) mmol/L Chloride (96-114) mmol/L Carbon Dioxide (20-32) mmol/L Anion Gap (7-15) mEq/L BUN (7-30) mg/dL Creatinine (0.5-1.5) mg/dL Estimated Creat Clear Estimated GFR ml/min Glucose (60-115) mg/dL Calcium (8.4-10.6) mg/dL Total Bilirubin (0.1-1.5) mg/dL Direct Bilirubin (0.0-0.5) mg/dL AST (12-35) U/L ALT (4-35) U/L Alkaline Phosphatase (40-150) U/L Troponin I (0.01-0.04) ng/mL Total Protein (6.0-8.3) g/dL Albumin (3.3-5.0) g/dL ECG Data Attestation: I personally reviewed and interpreted this ECG as follows: Discharge Plan Discharge Clinical Impression: Rectal bleed, Thrombocytopenia Patient Disposition: Xfer Other Discharge Location: [facility] Condition: Stable Prescriptions: No Action atorvastatin 20 mg tablet 20 mg PO QPM Eliquis 5 mg Tablet 10 mg PO BID Qty: 60 0RF Rx Instructions: Two tabs twice a day thru Monday the . Then one tab twice a day until you discuss with MD Jareth NOONAN iron Stand Alone Forms: MyHealth Info Instructions
[2025-07-05 13:42] VITALS: BP 151/95; PULSE 92; RESP 18; TEMP 36.6; O2SAT 96
[2025-07-05 14:44] LABS: D Dimer Quantitative* 0.72 ug/ml (0.00-0.50); INR 1.55 (0.91-1.10); Prothrombin Time 19.5 Seconds
[2025-07-05 16:50] VITALS: BP 136/84; PULSE 93; RESP 18; TEMP 36.8; O2SAT 93
== END 2025-07-05 18:24 | disposition other institution (70) ==
PROVIDERS: Emergency Provider Family Medicine
DX: D69.6 Thrombocytopenia, unspecified (principal); K62.5 Hemorrhage of anus and rectum; R00.0 Tachycardia, unspecified
CPT/HCPCS: 36415; 80048; 80076; 84484; 85025; 85379; 85384; 85610; 85730; 93005; 96360; 99285; A9270; J7030

== ENCOUNTER 2025-07-05 18:08 | Outpatient (CLI) | payer MEDICARE, SELFPAY | END 2025-07-05 18:09 | disposition home or self-care (01) | LOC: AMB 07-07 12:35 | PROVIDERS: Visit Provider Emergency Medicine Emergency Medical Services | DX: K62.5 Hemorrhage of anus and rectum (principal); D69.6 Thrombocytopenia, unspecified | CPT/HCPCS: A0425; A0427 ==